=== PATIENT | male | born 1940 | race Caucasian/White ===

== ENCOUNTER 2022-01-31 14:47 | Outpatient (CLI) | payer MEDICARE, BC, SELFPAY | END 2022-01-31 14:48 | disposition home or self-care (01) | LOC: AMB 02-06 22:44 | PROVIDERS: PCP Surgery; Visit Provider Emergency Medicine Emergency Medical Services | DX: S39.92XA Unspecified injury of lower back, initial encounter (principal); W18.2XXA Fall in (into) shower or empty bathtub, initial encounter; Y93.E1 Activity, personal bathing and showering; Y92.003 Bedroom of unspecified non-institutional (private) residence as the place of occurrence of the external cause | CPT/HCPCS: A0425; A0433 ==

== ENCOUNTER 2022-01-31 15:34 | Emergency (ER) | payer MEDICARE, BC, SELFPAY ==
[2022-01-31 15:35] VITALS: BP 114/69; PULSE 52; O2SAT 97
[2022-01-31 15:38] VITALS: BP 114/69; PULSE 51; RESP 20; TEMP 36.3; O2SAT 98; BMI 32.5
--- NOTE | 2022-01-31 15:54 | CRLHL7_ITS ---
For Patients: As a result of the Century Cures Act, medical imaging exams and procedure reports are released immediately into your electronic medical record. You may view this report before your referring provider. If you have questions, please contact your health care provider. Indication: Thoracolumbar pain after fall Technique: Two views thoracolumbar spine Comparison: Nine Findings: Bones: Alignment is normal. No fractures or bone lesions. Joint spaces: Mild multilevel degenerative disc and facet changes.. Soft tissues: Unremarkable. Impression: No acute fracture or subluxation identified. Consider CT thoracolumbar spine for further evaluation if clinically indicated. Dictated by Ev Andrew MD @ 01/31/2022 4:56:47 PM (Electronically Signed)
--- NOTE | 2022-01-31 15:55 | ED_ITS ---
HPI - General Adult General Chief complaint: Back Injury/Pain Stated complaint: Fall Time Seen by Provider: 01/31/22 15:37 History of Present Illness HPI narrative: This 81-year-old male comes in by ambulance because of a fall that occurred just prior to arrival. He was in the bathtub and slipped and fell backwards. He has pain in his lower back on the right side. He did not hit his head or lose consciousness. He was able to get help and did get up and ambulate immediately after the fall. After sitting a while he has had increased pain in his right lower back. He received 50 micro g of fentanyl and a mg of Versed by ambulance personnel and route here and they needed to support his oximetry with supplemental oxygen soon after this. At the time of my visit he has no other complaints other than pain in his right lower back. He does not have any or pelvis pain. Related Data Home Medications Medication Instructions Recorded Confirmed acyclovir 400 mg tablet mg 01/31/22 apixaban 5 mg tablet (Eliquis) mg 01/31/22 atorvastatin 20 mg tablet mg 01/31/22 blood-glucose sensor (Dexcom G6 01/31/22 01/31/22 Sensor device) cholecalciferol (vitamin D3) 1,250 01/31/22 mcg (50,000 unit) capsule duloxetine 30 mg capsule,delayed mg PO 01/31/22 release gabapentin 100 mg capsule mg 01/31/22 gabapentin 300 mg capsule mg 01/31/22 glucagon 3 mg/actuation nasal mg INTRANASAL 01/31/22 spray (Baqsimi) latanoprost 0.005 % eye drops drp OPHTHALMIC (EYE) 01/31/22 omeprazole 20 mg capsule,delayed mg 01/31/22 release ondansetron HCl 4 mg tablet mg 01/31/22 Allergies Allergy/AdvReac Type Severity Reaction Status Date / Time clindamycin Allergy Unknown Verified 01/31/22 15:45 furosemide Allergy Unknown Verified 01/31/22 15:45 loratadine Allergy Unknown Verified 01/31/22 15:45 losartan Allergy Unknown Verified 01/31/22 15:45 mold Allergy Unknown Verified 01/31/22 15:45 simvastatin Allergy Unknown Verified 01/31/22 15:45 Review of Systems Status of ROS: Reports: 10 or more systems reviewed and unremarkable except as noted in History and below Narrative: Constitutional: No fevers, no weight gain or loss. Eyes: No discharge. No vision changes. HENT: No congestion, no sore throat, no ear pain. Cardiovascular: No chest pain, no palpitations. Respiratory: No shortness of breath, no wheezes, no cough. Gastrointestinal: No abdominal pain, no vomiting, no diarrhea. Genitourinary: No dysuria, no hematuria. Musculoskeletal: Lower back pain on the right side from a recent fall. Skin: No rashes, no pruritis. Neurological: No dizziness, weakness, sensory change, speech change. Endo/Heme/Allergies: No bruising or bleeding. No polydipsia. Pysch: no suicidality, no anxiety, no insomnia. All other systems reviewed and are negative. PFSH [facility] Social History Smoking Status: Never smoker Do you use any of these nicotine containing products: None Second hand tobacco smoke exposure: No How often do you have a drink containing alcohol: never How often do you have six or more drinks on one occasion: Never AUDIT-C Alcohol total score: 0 Non-prescribed substance use: denies use Exam Narrative: Exam Narrative: Constitutional: Well-developed, well-nourished, no acute distress. HEENT: Normocephalic, atraumatic. Neck: Normal range of motion. Nontender. Supple. Heart: Regular. No murmurs. Normal rate. Intact distal pulses. Lungs: Clear to auscultation. No chest discomfort. No wheezes, rhonchi, or rales. Abdomen: Normal bowel sounds. Nontender. No rebound tenderness. Genitalia: Deferred. Back: No midline tenderness. Normal range of motion. Extremities: Normal range of motion. No pain when log-rolling each leg or when stressing the pelvis. He reports pain in the right lower back. Skin: Intact. No rash. Warm. No erythema or pallor. Neurologic: No altered sensation. No weakness. Alert and oriented. Psychiatric: No suicidality. No anxiety or depression. No insomnia. Nursing notes and vitals signs are reviewed. Const: Vital Signs, click to edit/add: Vital Signs - 24 hr 01/31/22 15:35 01/31/22 15:38 01/31/22 16:00 Temperature 97.3 F L Pulse Rate [Left P ulse Oximeter] 52 L 51 L 53 L Respiratory Rate 20 Blood Pressure [Ri ght Upper Arm] 114/69 114/69 133/74 Pulse Oximetry 97 98 98 01/31/22 17:05 Temperature Pulse Rate [Left P ulse Oximeter] 58 L Respiratory Rate Blood Pressure [Ri ght Upper Arm] 134/105 H Pulse Oximetry 95 Course Vital Signs Vital signs: Initial Vital Signs Pulse Rate 52 L 01/31/22 15:35 Blood Pressure 114/69 01/31/22 15:35 Blood Pressure Mean 84 01/31/22 15:35 Blood Pressure Position Supine 01/31/22 15:35 Pulse Oximetry 97 01/31/22 15:35 Oxygen Delivery Method 01/31/22 15:35 Oxygen Flow Rate 2 01/31/22 15:35 Vital Signs Pulse Rate 52 L 01/31/22 15:35 Blood Pressure 114/69 01/31/22 15:35 Pulse Oximetry 97 01/31/22 15:35 Temperature 97.3 F L 01/31/22 15:38 Pulse Rate 58 L 01/31/22 17:05 Respiratory Rate 20 01/31/22 15:38 Blood Pressure 134/105 H 01/31/22 17:05 Pulse Oximetry 95 01/31/22 17:05 Medical Decision Making MDM Narrative Medical decision making narrative: This patient comes in for evaluation of injuries from a fall that occurred just prior to arrival. He reports pain in his right lower back. X-ray of the thoracolumbar spine shows no acute findings. The patient did receive an oral dose of [place]. He was able to get up and use a walker as is typical for him. He is okay to return home. He did receive a prescription for some tablets of [place] for additional pain relief as needed. Imaging Data thoracolumbar x-ray: Radiologist's impression: No acute fracture or subluxation identified. Discharge Plan Discharge Clinical Impression: Back injury Patient Disposition: Home, Self-Care Condition: Stable Instructions: Back Pain (ED) Additional Instructions: Fall with contusion to the back. Take medication as needed and prescribed. Activity as tolerated. Follow up with MD or return if worsening. Prescriptions: No Action latanoprost 0.005 % drops OPHTHALMIC (EYE) 0RF Label Comments: INSTILL 1 DROP IN BOTH EYES AT BEDTIME atorvastatin 20 mg tablet 0RF Label Comments: TAKE ONE TABLET BY MOUTH EVERY DAY ondansetron HCl 4 mg tablet 0RF Label Comments: TAKE 1 TABLET (4 MG) BY MOUTH EVERY 8 HOURS IF NEEDED FOR NAUSEA/VOMITING. acyclovir 400 mg tablet 0RF Label Comments: TAKE ONE TABLET BY MOUTH TWICE A DAY gabapentin 300 mg capsule 0RF Label Comments: TAKE 1 CAPSULE(300MG) BY MOUTH THREE TIMES DAILY omeprazole 20 mg capsule,delayed release(DR/EC) 0RF Label Comments: TAKE ONE CAPSULE BY MOUTH EVERY DAY BEFORE A MEAL gabapentin 100 mg capsule 0RF Label Comments: TAKE 3 CAPSULES BY MOUTH THREE TIMES DAILY duloxetine 30 mg capsule,delayed release(DR/EC) PO 0RF Label Comments: TAKE 1 CAPSULE (30 MG) BY MOUTH ONCE DAILY. cholecalciferol (vitamin D3) 1,250 mcg (50,000 unit) capsule 0RF Label Comments: TAKE ONE CAPSULE BY MOUTH EVERY OTHER WEEK (DME) DexVideolicious G6 Sensor Device MISCELLANEOUS 0RF Label Comments: DIRECTED. CHANGE EVERY 10 DAYS Eliquis 5 mg tablet 0RF Label Comments: TAKE ONE TABLET BY MOUTH TWICE A DAY Baqsimi 3 mg/actuation spray,non-aerosol INTRANASAL 0RF Label Comments: INHALE INTO AFFECTED NOSTRIL(S). WHEN UNABLE TO TREAT LOW BLOOD SUGAR (HYPOGLYCEMIA) WITH FOOD/ DRINK, GIVE ONE ACTUATION (3MG) INTO ONE NOSTRIL Follow Up/Referrals: Macario Pollard MD [Primary Care Provider] - [facility]
[2022-01-31 16:00] VITALS: BP 133/74; PULSE 53; O2SAT 98
[2022-01-31 17:05] VITALS: BP 134/105; PULSE 58; O2SAT 95
[2022-01-31 17:40] VITALS: BP 138/75; PULSE 60; O2SAT 97
[2022-01-31] MEDS: HYDROCODONE-ACETAMIN 5-325 MG 1 TAB PO (17:41)
== END 2022-01-31 18:05 | disposition home or self-care (01) ==
PROVIDERS: Emergency Provider Emergency Medicine Emergency Medical Services; PCP Surgery
DX: M54.50 Low back pain, unspecified (principal); W18.2XXA Fall in (into) shower or empty bathtub, initial encounter
CPT/HCPCS: 72080; 99283; 99284; A9270

== ENCOUNTER 2022-02-02 09:47 | Outpatient (CLI) | payer MEDICARE, BC, SELFPAY | END 2022-02-02 09:48 | disposition home or self-care (01) | LOC: AMB 02-07 11:56 | PROVIDERS: PCP Surgery; Visit Provider Family Medicine | DX: M54.9 Dorsalgia, unspecified (principal) | CPT/HCPCS: A0425; A0427 ==

== ENCOUNTER 2022-02-02 10:40 | Inpatient (IN) | payer MEDICARE, BC, SELFPAY ==
[2022-02-02] VITALS (7 sets, daily range): BP systolic 138–164; BP diastolic 63–100; PULSE 60–67; RESP 16–20; TEMP 35.7–36.8; O2SAT 91–98; BMI 33.6
--- NOTE | 2022-02-02 11:52 | PC.NURSE ---
ice water to room, ok'd by Dr Lenz
--- NOTE | 2022-02-02 11:56 | CRLHL7_ITS ---
For Patients: As a result of the Century Cures Act, medical imaging exams and procedure reports are released immediately into your electronic medical record. You may view this report before your referring provider. If you have questions, please contact your health care provider. INDICATION: Fall and pain TECHNIQUE: Single view chest with AP and oblique views of the right chest COMPARISON: Two-view chest October 11, 2020 FINDINGS: There is hyperinflation and chronic interstitial change with mildly increased interstitial markings likely representing mild pulmonary vascular congestion. There is minimal basilar atelectasis and parenchymal scar. The cardiac silhouette is mildly prominent. There is no evidence of displaced rib fracture. There is an old left-sided rib deformity, otherwise the bony thorax is intact. IMPRESSION: Hyperinflation and chronic interstitial change with likely mild superimposed pulmonary vascular congestion. No displaced rib fracture is appreciated. If pain and clinical symptoms persist, subtle, non-displaced injuries are not entirely excluded. Dictated by Narciso Taylor MD @ 02/02/2022 1:01:25 PM (Electronically Signed)
--- NOTE | 2022-02-02 12:03 | ED.BACK ---
HPI - Back Pain/Injury General Time Seen by Provider: 12:03 Date Seen: 02/02/22 Chief Complaint: Back Injury/Pain Stated Complaint: Back pain Time Seen by Provider: 02/02/22 10:46 Source: patient and family Mode of arrival: EMS Limitations: no limitations History of Present Illness HPI Narrative: 81-year-old gentleman comes to the emergency room for assessment of right-sided posterior back discomfort. He was seen in the emergency room 48 hours ago after a fall in his bathroom. He lives independently in the community with his . He does have some issues however, and uses a walker primarily to get a along. He has had increasing right-sided lower back discomfort since this occurred. He had imaging done of his entire thoracic lumbar area. According to the family. Was placed on Vicodin for the discomfort. And feels that this really is not working that well. If anything it is causing to have little mild clonus type jerking. He does feel constipated but his daughter who is here with him says that this is more of a chronic concern, possibly worsened by the hydrocodone. He has had no fevers or chills, he has had no shortness of breath, but when he takes a deep breath in he does have some discomfort. He denies any blood with urination but is chronically incontinent of urine. No radiation discomfort he describes his discomfort as 8/10. Related Data Home Medications Medication Instructions Recorded Confirmed acyclovir 400 mg tablet mg 01/31/22 apixaban 5 mg tablet (Eliquis) mg 01/31/22 atorvastatin 20 mg tablet mg 01/31/22 blood-glucose sensor (Dexcom G6 01/31/22 01/31/22 Sensor device) cholecalciferol (vitamin D3) 1,250 01/31/22 mcg (50,000 unit) capsule duloxetine 30 mg capsule,delayed mg PO 01/31/22 release gabapentin 100 mg capsule mg 01/31/22 gabapentin 300 mg capsule mg 01/31/22 glucagon 3 mg/actuation nasal mg INTRANASAL 01/31/22 spray (Baqsimi) latanoprost 0.005 % eye drops drp OPHTHALMIC (EYE) 01/31/22 omeprazole 20 mg capsule,delayed mg 01/31/22 release ondansetron HCl 4 mg tablet mg 01/31/22 Allergies Allergy/AdvReac Type Severity Reaction Status Date / Time clindamycin Allergy Unknown Verified 01/31/22 15:45 furosemide Allergy Unknown Verified 01/31/22 15:45 loratadine Allergy Unknown Verified 01/31/22 15:45 losartan Allergy Unknown Verified 01/31/22 15:45 mold Allergy Unknown Verified 01/31/22 15:45 simvastatin Allergy Unknown Verified 01/31/22 15:45 Review of Systems Status of ROS: Reports: 10 or more systems reviewed and unremarkable except as noted in History and below PFSH PFSH Social History Smoking Status: Never smoker Do you use any of these nicotine containing products: None Second hand tobacco smoke exposure: No How often do you have a drink containing alcohol: never How often do you have six or more drinks on one occasion: Never AUDIT-C Alcohol total score: 0 Non-prescribed substance use: denies use Exam Const: Vital Signs, click to edit/add: Vital Signs - 24 hr 02/02/22 10:47 Temperature 96.3 F L Pulse Rate [Right Radial] 61 Respiratory Rate 16 Blood Pressure [Ri ght Upper Arm] 156/80 H Pulse Oximetry 91 Documenting provider has reviewed patient's vital signs: yes Common normals: no apparent distress and oriented x3 General appearance: cooperative and comfortable Nutritional appearance: obese Orientation/consciousness: Yes awake, Yes oriented to person, Yes oriented to place and Yes oriented to time HENMT: Common normals: normocephalic, head/scalp atraumatic, hearing grossly normal bilaterally, external ears normal, TM's normal bilaterally, external nose normal, nasal mucous membranes and turbinates normal, moist oral mucous membranes, oropharynx normal, dentition normal and gingiva normal Head and scalp: normocephalic and atraumatic Nose: external nose normal and nasal mucous membranes and turbinates normal External ear: external ears normal Tympanic membrane: TM's normal bilaterally Eye: Common normals: PERRL, EOMs intact bilaterally, conjunctivae normal and fundi normal bilaterally Conjunctiva: conjunctiva(e) normal Pupil: PERRL Direct Ophthalmoscopy: fundi normal bilaterally Neck & C-Spine: Common normals: full ROM, no lymphadenopathy, supple, no meningeal signs, no JVD, thyroid normal and no carotid bruits Thyroid: thyroid normal Lymph: Lymphatic: no lymphadenopathy noted Chest: Common normals: inspection of chest normal Chest: localized rib tenderness with anteroposterior compression Nipple/areola: nipples/areola normal Resp: Common normals: normal respiratory effort, no retractions, no use of accessory muscles and clear to auscultation bilaterally Effort & inspection: able to speak in complete sentences and decreased respiratory effort Auscultation: clear to auscultation bilaterally Percussion: dullness (Dullness is noted bilaterally in the lower area) Cardio: Common normals: no JVD, regular rate, regular rhythm and S1 normal heart sound Palpation: normal PMI Rate: regular rate Rhythm: regular rhythm Heart sounds: S1 normal GI: Common normals: Normal to inspection, nondistended, normoactive bowel sounds present, soft to palpation, non-tender and no hepatosplenomegaly Inspection: normal to inspection and central obesity Auscultation: normoactive bowel sounds Palpation: soft and no hepatosplenomegaly Percussion: normal to percussion : Common normals: no CVA tenderness Bladder/kidney exam: no CVA tenderness Back & Pelvis: Common normals: no CVA tenderness, thoracic and lumbar spine normal to inspection, no thoracic nor lumbar tenderness, thoraco-lumbar ROM normal and straight leg raise negative bilaterally Extremity: Common normals: normal to inspection, full ROM and normal capillary refill General: edema Neuro: Common normals: oriented x3, CN's II-XII intact bilaterally, moves all extremities, no focal motor deficits, no sensory deficits noted, deep tendon reflexes 2+ bilaterally and gait normal Sensorium/orientation: awake, oriented to person, oriented to place and oriented to time Meningeal signs: no meningeal signs Other: Was a little bit a mild clonus right greater than left when he lifted his leg and moves around. Psych: Common normals: mental status grossly normal Course Vital Signs Vital signs: Initial Vital Signs Temperature 96.3 F L 02/02/22 10:47 Temperature Source Temporal Artery Scan 02/02/22 10:47 Pulse Rate 61 02/02/22 10:47 Pulse Rhythm 02/02/22 10:47 Respiratory Rate 16 02/02/22 10:47 Blood Pressure 156/80 H 02/02/22 10:47 Blood Pressure Mean 105 02/02/22 10:47 Blood Pressure Position Supine 02/02/22 10:47 Pulse Oximetry 91 02/02/22 10:47 Oxygen Delivery Method 02/02/22 10:47 Vital Signs Temperature 96.3 F L 02/02/22 10:47 Pulse Rate 61 02/02/22 10:47 Respiratory Rate 16 02/02/22 10:47 Blood Pressure 156/80 H 02/02/22 10:47 Pulse Oximetry 91 02/02/22 10:47 Temperature 96.3 F L 02/02/22 10:47 Pulse Rate 61 02/02/22 10:47 Respiratory Rate 16 02/02/22 10:47 Blood Pressure 156/80 H 02/02/22 10:47 Pulse Oximetry 91 02/02/22 10:47 MDM - Back Pain/Injury MDM Narrative Medical decision making narrative: Patient is seen and assessed he clearly has right-sided rib discomfort. I did review from the previous ER visit that he did not have rib x-rays. I explained to the family we will do these. Differential Diagnosis Differential diagnosis: Likely lumbar radiculopathy, sciatica, strain of lumbar region, renal colic, pyelonephritis and thoracic back pain Medical Records Attestation: I reviewed the patient's medical records. Lab Data Attestation: I reviewed the patient's lab results. Discharge Plan Discharge Prescriptions: No Action latanoprost 0.005 % drops OPHTHALMIC (EYE) 0RF Label Comments: INSTILL 1 DROP IN BOTH EYES AT BEDTIME atorvastatin 20 mg tablet 0RF Label Comments: TAKE ONE TABLET BY MOUTH EVERY DAY ondansetron HCl 4 mg tablet 0RF Label Comments: TAKE 1 TABLET (4 MG) BY MOUTH EVERY 8 HOURS IF NEEDED FOR NAUSEA/VOMITING. acyclovir 400 mg tablet 0RF Label Comments: TAKE ONE TABLET BY MOUTH TWICE A DAY gabapentin 300 mg capsule 0RF Label Comments: TAKE 1 CAPSULE(300MG) BY MOUTH THREE TIMES DAILY omeprazole 20 mg capsule,delayed release(DR/EC) 0RF Label Comments: TAKE ONE CAPSULE BY MOUTH EVERY DAY BEFORE A MEAL gabapentin 100 mg capsule 0RF Label Comments: TAKE 3 CAPSULES BY MOUTH THREE TIMES DAILY duloxetine 30 mg capsule,delayed release(DR/EC) PO 0RF Label Comments: TAKE 1 CAPSULE (30 MG) BY MOUTH ONCE DAILY. cholecalciferol (vitamin D3) 1,250 mcg (50,000 unit) capsule 0RF Label Comments: TAKE ONE CAPSULE BY MOUTH EVERY OTHER WEEK (DME) Char[employer]bu[employer] G6 Sensor Device MISCELLANEOUS 0RF Label Comments: DIRECTED. CHANGE EVERY 10 DAYS Eliquis 5 mg tablet 0RF Label Comments: TAKE ONE TABLET BY MOUTH TWICE A DAY Baqsimi 3 mg/actuation spray,non-aerosol INTRANASAL 0RF Label Comments: INHALE INTO AFFECTED NOSTRIL(S). WHEN UNABLE TO TREAT LOW BLOOD SUGAR (HYPOGLYCEMIA) WITH FOOD/ DRINK, GIVE ONE ACTUATION (3MG) INTO ONE NOSTRIL Follow Up/Referrals: Macario Pollard MD [Primary Care Provider] -
--- NOTE | 2022-02-02 12:34 | CRLHL7_ITS ---
For Patients: As a result of the Century Cures Act, medical imaging exams and procedure reports are released immediately into your electronic medical record. You may view this report before your referring provider. If you have questions, please contact your health care provider. Indication: Fall, right rib pain from Technique: Volumetric multidetector CT images of the chest were obtained without the administration of IV contrast. Comparison: CT chest without contrast August 10, 2015 Findings: The thoracic inlet and thyroid gland are unremarkable. The thoracic aorta is nonaneurysmal. There is demonstration of an increasing pre-vascular space mass lesion circumscribed with a somewhat macro lobulated contour measuring 4.5 x 1.8 centimeters, previously measuring 1.6 centimeters. There is mild to moderate central bronchial thickening with demonstration of somewhat collapsed appearing bronchi which may represent minimal bronchomalacia. There is biapical pleural thickening with dependent basilar atelectasis and parenchymal scar. There is no dense consolidation, effusion or pneumothorax. There is demonstration of a pulmonary mass within the anterior right upper lobe measuring 6.8 millimeters in greatest dimension similar to previous exam. There is demonstration of an additional pulmonary nodule in the peripheral right lung base measuring 6.1 millimeters. The partially visualized upper abdomen demonstrates minimal layering calculi within the gallbladder lumen. There is minimally displaced fracture of the posterior right 7th, 8th, and 9th ribs. There are old left-sided rib deformities appreciated. 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 These are stable from remote comparison. Impression: Minimally displaced fractures of the right posterior 7th, 8th and 9th ribs with minimal basilar atelectasis and parenchymal scar. No evidence of pneumothorax. Significantly increased size of a macro lobulated, circumscribed mass within the prevascular space which could represent a thymic mass lesion measuring 4.5 x 1.8 centimeters, previously this measured 1.6 centimeters on remote comparison. Recommend continued follow-up with contrast enhanced exam in 6 months to document stability. Please note that all CT scans at this facility use dose modulation, iterative reconstruction, and/or weight-based dosing when appropriate to reduce radiation dose to as low as reasonably achievable. Dictated by Narciso Taylor MD @ 02/02/2022 2:37:20 PM (Electronically Signed)
--- NOTE | 2022-02-02 12:47 | ED.BACK ---
HPI - Back Pain/Injury General Date Seen: 02/02/22 Chief Complaint: Back Injury/Pain Stated Complaint: Back pain Time Seen by Provider: 02/02/22 10:46 Source: patient and family Mode of arrival: EMS History of Present Illness HPI Narrative: 81-year-old gentleman presents by EMS for evaluation of back pain. Seen 48 hours ago after a fall that occurred in his house. He slid down the side of his bathroom onto the tile striking his right posterior side. He came in at that point had negative x-rays also as told to me by the daughter who is here. No history of any breathing difficulties with this although when he takes a deep breath in he notices it more his right. He has been taking hydrocodone for discomfort but notice this is really isn't working. He is taking 1 tablet every 6 hours. It is however constipated worse than his normal chronic constipation, he has a history also of incontinence of urine, in feels that he can not really passes urine but his daughter reminds him that he is always incontinent. He denies any other injury to his head neck or shoulders. Denies any problems with the legs. But has really been unable to walk in the family has been struggling at home as he is a large gentleman in getting him up and moving around. He is up to today been able to bear weight on his feet. But even today he has been unable to do this. They are considering whether not he will be able to go home at this point. Denies any chest pain, fevers chills or sweats, any dysuria frequency rashes, any headache, or any other concerns. MD elicited complaint: back pain and fall Related Data Home Medications Medication Instructions Recorded Confirmed acyclovir 400 mg tablet 400 mg PO Q12H 01/31/22 02/02/22 apixaban 5 mg tablet (Eliquis) 5 mg PO Q12H 01/31/22 02/02/22 atorvastatin 20 mg tablet 20 mg PO HS 01/31/22 02/02/22 blood-glucose sensor (Dexcom G6 01/31/22 02/02/22 Sensor device) cholecalciferol (vitamin D3) 1,250 50,000 unit PO .EVERY OTHER WEEK 01/31/22 02/02/22 mcg (50,000 unit) capsule duloxetine 30 mg capsule,delayed 30 mg PO DAILY 01/31/22 02/02/22 release gabapentin 300 mg capsule 300 mg PO Q8H 01/31/22 02/02/22 glucagon 3 mg/actuation nasal 3 mg INTRANASAL PRN 01/31/22 02/02/22 spray (Baqsimi) latanoprost 0.005 % eye drops 1 drp OPHTHALMIC (EYE) HS 01/31/22 02/02/22 brimonidine 0.2 % eye drops 1 drp OPHTHALMIC (EYE) Q8H 02/02/22 02/02/22 dorzolamide 22.3 mg-timolol 6.8 1 drp OPHTHALMIC (EYE) Q12H 02/02/22 02/02/22 mg/mL eye drops lenalidomide 5 mg capsule 5 mg PO DAILY 02/02/22 02/02/22 (Revlimid) Allergies Allergy/AdvReac Type Severity Reaction Status Date / Time clindamycin Allergy Unknown Verified 01/31/22 15:45 furosemide Allergy Unknown Verified 01/31/22 15:45 loratadine Allergy Unknown Verified 01/31/22 15:45 losartan Allergy Unknown Verified 01/31/22 15:45 mold Allergy Unknown Verified 01/31/22 15:45 simvastatin Allergy Unknown Verified 01/31/22 15:45 Review of Systems Status of ROS: Reports: 10 or more systems reviewed and unremarkable except as noted in History and below [facility] Social History Smoking Status: Never smoker Do you use any of these nicotine containing products: None Second hand tobacco smoke exposure: No How often do you have a drink containing alcohol: never How often do you have six or more drinks on one occasion: Never AUDIT-C Alcohol total score: 0 Non-prescribed substance use: denies use Exam Narrative: Exam Narrative: Patient is peaking normally, problem with slurring words, oriented x3. Head eyes ears nose and throat exam show equal pupils, no scleral icterus, extraocular muscles are normal, no facial droop, speech is normal, trachea normal and midline. Thyroid normal midline palpable not enlarged. Chest shows symmetrical rise bilaterally, normal auscultation with no wheezes, no increased work of breathing, no overt bruising or lesions seen,tenderness is noted on auscultation. Do not see any bruising, but there is tenderness on the right posterior lateral side of his chest. A little bit of dullness also as noted in the bases, and percussion dullness also. Heart sounds normal with no S3-S4 no murmurs clicks or gallops. Abdomen shows no obvious masses or hepatosplenomegaly, no organomegaly, bowel sounds are normal in all quadrants. No tenderness is noted also in all quadrants. There is noticeable umbilical hernia that is freely reducible, and he is distended, Upper and lower extremities show normal power, normal range of motion, pulses are normal, sensations normal, fine motor movements are normal, pelvis is stable to rocking. Cervical spine shows normal range of motion, and palpably not tender. Thoracic spine shows normal range of motion, and palpably not tender, lumbar spine shows no tenderness to palpation percussion and is otherwise normal range of motion. Skin shows no rashes, petechiae or eccymosis. Const: Vital Signs, click to edit/add: Vital Signs - 24 hr 02/02/22 10:47 02/02/22 14:35 Temperature 96.3 F L Pulse Rate [Right Radial] 61 64 Respiratory Rate 16 18 Blood Pressure [Ri ght Upper Arm] 156/80 H 138/100 H Pulse Oximetry 91 97 Documenting provider has reviewed patient's vital signs: yes Common normals: no apparent distress Course Vital Signs Vital signs: Initial Vital Signs Temperature 96.3 F L 02/02/22 10:47 Temperature Source Temporal Artery Scan 02/02/22 10:47 Pulse Rate 61 02/02/22 10:47 Pulse Rhythm 02/02/22 10:47 Respiratory Rate 16 02/02/22 10:47 Blood Pressure 156/80 H 02/02/22 10:47 Blood Pressure Mean 105 02/02/22 10:47 Blood Pressure Position Supine 02/02/22 10:47 Pulse Oximetry 91 02/02/22 10:47 Oxygen Delivery Method 02/02/22 10:47 Vital Signs Temperature 96.3 F L 02/02/22 10:47 Pulse Rate 61 02/02/22 10:47 Respiratory Rate 16 02/02/22 10:47 Blood Pressure 156/80 H 02/02/22 10:47 Pulse Oximetry 91 02/02/22 10:47 Temperature 96.3 F L 02/02/22 10:47 Pulse Rate 67 02/02/22 15:34 Respiratory Rate 18 02/02/22 15:34 Blood Pressure 150/86 H 02/02/22 15:34 Pulse Oximetry 97 02/02/22 15:34 MDM - Back Pain/Injury MDM Narrative Medical decision making narrative: Patient is seen and assessed, we will do an x-ray, of his right-sided ribs. I reviewed the rib x-ray did not see any obvious fracture, but did detail was limited. I will do a CT without contrast of the chest Differential Diagnosis Differential diagnosis: Likely strain of lumbar region and thoracic back pain Medical Records Attestation: I reviewed the patient's medical records. Lab Data Attestation: I reviewed the patient's lab results. Labs: Lab Results 02/02/22 Range/Units 13:54 SARS-CoV-2 (PCR) Negative SARS-CoV-2 (Negative)
[2022-02-02] MEDS: OxyCODONE/APAP 5-325 TABLET 2 TAB PO (13:29)
--- NOTE | 2022-02-02 14:48 | W.PC.EDHO ---
Primary Language: Preferred Language: Orientation Status: x[x] Alert & Oriented [] Slight Confusion [] Known Dx Dementia Transfers By: [] Assist of 1 [x] Assist of 2 [] Lift Active Medications Discontinued Medications Generic Name Dose Route Start Last Admin Trade Name Ti PRN Reason Stop Dose Admin Oxycodone/Acetaminophen 2 tab 02/02/22 13:17 02/02/22 13:29 Oxycodone/Apap 5-325 Tablet PO 02/02/22 13:18 1 tab ONCE ONE Administration Description of Symptoms ED Triage Present Problem patient fallen on Tuesday and c/o back pain was Description sent home with Vicodin . patient is not getting very good pain relief and has neuropathy in feet very hard to sit or stand. EMs given fent 25 mcg via IVP in LAC #20. has a insulin pump BS400 at home and received 10 units insuli. rechecked BS 350 by EMS with IV start. ED Triage Date of Onset of 01/31/22 Symptoms Pain Pain Description [Lower Back] Acute Pain Description [Lower Back] Throbbing Pain Intensity [Lower Back] 6 Pain Intensity 6 Pain Scale Used [Lower Back] Numeric (1 - 10) Pain Scale Used Numeric (1 - 10) Oxygen Administration Pulse Oximetry 91 Oxygen Delivery Method Room Air
[2022-02-02 15:40] LABS: SARS PCR* Negative SARS-CoV-2 (Negative)
--- NOTE | 2022-02-02 16:28 | PM.IMHP1 ---
Hospitalist- H&P: NASRA History of Present Illness Time Seen by Provider: 15:00 Date Seen: 02/02/22 Chief complaint: Back pain Narrative: Chava Theodore is a 81 year old man who lives at home with his . He was in his usual state of health up until roughly 2 days ago. Two days ago after he was done showering and trying to get out of the shower he sustained a fall. He fell backward. Immediately had pain on his right side of his chest posteriorly. Did not strike his head. No loss of consciousness. Pain was persistent. Presented to the emergency department for assessment. X-rays were performed and no obvious fractures were noted. Was given Percocet for pain management. Pain has been persistent despite attempted use of analgesics Thus he presents emergency department once again today. In the emergency department today a CT scan of the chest was obtained which demonstrates closed fracture of the right posterior 7th 8th and 9th ribs, mildly displaced. Pain is such that he is no longer able to care for himself at home as he used to. Does have help from his and nearby family. Has been using Percocet with only a modicum of relief. Since using the Percocet he has not been able to avoid. Ordinarily has urinary incontinence. History of prostate cancer status post robotic prostatectomy in 2010. Has had urinary incontinence since the robotic prostatectomy. Reviewed findings with patient and his family and they opted to come into the hospital for observation tonight. Plan is to try to achieve analgesia and have Physical therapy and Occupational therapy assess and recommend. Also will have outreach and education social worker assist with discharge disposition planning as well. Discussed returning home with increased services verses transitional care services in a skilled nursing if possible. At this juncture they are open to either option but they would prefer to be able to go home if possible. Review of Systems Status of ROS: Reports: 10 or more systems reviewed and unremarkable except as noted in History and below Narrative: Denies angina or anginal equivalent. No syncope or near syncope. No cough or dyspnea. Denies nausea or vomiting. Appetite slightly decreased in association with the use of the Percocet for the last couple of days. Again has had very little urine output since starting to use the Percocet. Denies bowel incontinence. Chronic unstable gait for which she uses a walker. He ascribes this to his peripheral neuropathy. Has had decrease physical abilities and activity for years under scoring underlying physical deconditioning and debility. Notes that he has constipation when he takes his Revlimid and has loose stools when he does not take his Revlimid. He takes his Revlimid for 21 days and then has 7 days off and then starts the 21 day administration of the Revlimid for his multiple myeloma once again. Has been on this maintenance therapy for years. Last hematology consultation he had was on 01/22/2022 with a decision being made to continue with current maintenance treatment with Revlimid. 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), bilateral Unstable gait Urinary incontinence Weakness Social History Highest level of school completed/degree received: Bachelor's degree Smoking Status: Never smoker Do you use any of these nicotine containing products: None Second hand tobacco smoke exposure: No How often do you have a drink containing alcohol: never How often do you have six or more drinks on one occasion: Never AUDIT-C Alcohol total score: 0 Non-prescribed substance use: denies use Caffeine: No Do you think of yourself as: straight/heterosexual Gender Identity: male service: Yes Meds Home Medications and Allergies Home Medications Medication Instructions Recorded Confirmed Type acyclovir 400 mg tablet 400 mg PO Q12H 01/31/22 02/02/22 History apixaban 5 mg tablet (Eliquis) 5 mg PO Q12H 01/31/22 02/02/22 History atorvastatin 20 mg tablet 20 mg PO HS 01/31/22 02/02/22 History blood-glucose sensor (Dexcom G6 01/31/22 02/02/22 History Sensor device) cholecalciferol (vitamin D3) 1,250 50,000 unit PO .EVERY OTHER WEEK 01/31/22 02/02/22 History mcg (50,000 unit) capsule gabapentin 300 mg capsule 600 mg PO BID 01/31/22 02/02/22 History glucagon 3 mg/actuation nasal 3 mg INTRANASAL PRN 01/31/22 02/02/22 History spray (Baqsimi) brimonidine 0.2 % eye drops 1 drp OPHTHALMIC (EYE) Q8H 02/02/22 02/02/22 History calcium carbonate 600 mg calcium 600 mg PO DAILY 02/02/22 02/02/22 History (1,500 mg) tablet (Calcium) cyanocobalamin (vitamin B-12) 1,000 mcg PO DAILY 02/02/22 02/02/22 History 1,000 mcg capsule dorzolamide 22.3 mg-timolol 6.8 1 drp OPHTHALMIC (EYE) Q12H 02/02/22 02/02/22 History mg/mL eye drops glucagon 1 mg/0.2 mL subcutaneous 1 mg SUBCUT DAILY PRN 02/02/22 02/02/22 History syringe (Page[employer] People PFS 1-Pack) insulin aspart U-100 100 unit/mL See Rx Instructions SUBCUT 02/02/22 02/02/22 History subcutaneous solution (Novolog USEASDIRECTD U-100 Insulin aspart) lenalidomide 5 mg capsule 5 mg PO DAILY 02/02/22 02/02/22 History (Revlimid) loperamide 2 mg capsule (Imodium 2 mg PO QID PRN 02/02/22 02/02/22 History A-D) multivitamin 1 tab PO DAILY@12 02/02/22 02/02/22 History omeprazole 20 mg capsule,delayed 20 mg PO DAILY@1600 02/02/22 02/02/22 History release ondansetron HCl 4 mg tablet 4 mg PO Q8H PRN 02/02/22 02/02/22 History oxycodone-acetaminophen 5 mg-325 1 tab PO Q6H PRN 02/02/22 02/02/22 History mg tablet (Percocet) sennosides 8.6 mg tablet (senna) 8.6 mg PO HS 02/02/22 02/02/22 History Allergies Allergy/AdvReac Type Severity Reaction Status Date / Time clindamycin Allergy Unknown Verified 01/31/22 15:45 furosemide Allergy Unknown Verified 01/31/22 15:45 loratadine Allergy Unknown Verified 01/31/22 15:45 losartan Allergy Unknown Verified 01/31/22 15:45 mold Allergy Unknown Verified 01/31/22 15:45 simvastatin Allergy Unknown Verified 01/31/22 15:45 Exam Narrative: Exam Narrative: When I see him he appears comfortable in the emergency department exam table with head of bed elevated about 45?. He is awake, alert, oriented to self, place, not so much to time, but is oriented to situation. He is pleasant. Slow to respond to his questions. Hard of hearing. Articulate. Cooperative. Seems to not be able to complete his thoughts at times. Mood and affect are congruent. Moves all 4 extremities. No obvious focal motor neurologic deficits aside from the chronic hearing and his generalized weakness particularly of lower extremities. Decreased sensation awareness of feet bilaterally. Lungs fairly clear to auscultation possibly some end inspiratory rales bilaterally. No wheezing or rhonchi. Heart tones with regular rhythm, normal S1-S2. Abdomen is obese with active bowel sounds, soft, nontender. Pitting edema bilateral lower extremities on dorsum of feet and pretibially. Few areas of ecchymosis from contusions on his skin. No open wounds. Const: Vital Signs, click to edit/add: Vital Signs - 24 hr 02/02/22 10:47 02/02/22 14:35 02/02/22 15:34 Temperature 96.3 F L Pulse Rate [Right Radial] 61 64 67 Respiratory Rate 16 18 18 Blood Pressure [Ri ght Upper Arm] 156/80 H 138/100 H 150/86 H Pulse Oximetry 91 97 97 Documenting provider has reviewed patient's vital signs: yes Hospitalist - H&P: Result Imaging CT scan - chest: Attestation: I have reviewed the pertinent imaging results. Radiologist's impression: Minimally displaced fractures of the right posterior 7th, 8th, and 9th ribs. Minimal basilar atelectasis and a parenchymal scar. No pneumothorax. There is a macro lobulated, circumscribed mass within the prevascular space measuring 4.5 cm x 1.8 cm previously measuring 1.6 cm. Possibly a thymic mass. Follow-up with the contrast enhanced exam in 6 months is recommended by the radiologist. Assessment and Plan Assessment and plan (1) Back injury: Status: Acute (2) Closed rib fracture: Problem comment: R posterior 7, 8, 9 rib fxs, mild displacement Status: Acute Assessment and Plan: Manage pain with scheduled acetaminophen, p.r.n. oxycodone, consider lidocaine patches. (3) Fall: Problem comment: 01/31/2022 from standing, in shower Status: Acute (4) Unstable gait: Problem comment: Uses walker Status: Acute (5) Peripheral neuropathy: Status: Acute (6) Weakness: Problem comment: Chronic Status: Acute Assessment and Plan: His weakness has seemingly only intensified since the fall that resulted in his rib fractures and starting Percocet for pain control. Admit to the hospital for observation for now. He is too weak to be able to return home. There is insufficient support in the home setting at this time. It would be too dangerous for him to be discharged from the hospital today to his home without further assessment and consideration of additional supportive efforts. Will have Physical therapy and Occupational therapy assess while he is in the hospital for observation. Consider home care options verses temporary transitional care services. (7) Urinary retention: Problem comment: From use of oxycodone for pain management Status: Acute Assessment and Plan: This is new since starting Percocet for management of his back pain. Usually has urinary incontinence. Monitor postvoid residuals and consider intermittent catheterizations for now. (8) Urinary incontinence: Problem comment: Since prostatectomy 2010 Status: Acute (9) Multiple myeloma: Problem comment: IgA kappa, diagnosed October 2013 On Revlimid (lenalidomide) maintenance, October 2015-present Followed by hematology, [facility], [place], [place] Status: Acute Assessment and Plan: Continue with the Revlimid. He has completed 7 of the 21 days of treatment. He still has 14 more days of treatment before has his 7 days off. (10) Diabetes mellitus type 1 with complications: Problem comment: Dx 1988 [employer] Insulin pump Status: Acute Assessment and Plan: Ordinarily utilizes his insulin pump at home is able to make all the calculations necessary to administer sliding scale according to his 15 g of carbohydrate to 1 unit of insulin. Currently his thought processes preclude him from being able to do this safely. In-hospital I will order a sliding scale insulin with each meal. Continue to monitor blood sugars a minimum of 4 times daily, a.c. and at bedtime. (11) Glaucoma: Problem comment: Multiple ophthalmic drops for treatment Status: Acute Assessment and Plan: Continue on his glaucoma ophthalmic drops. (12) Hyperlipidemia due to type 1 diabetes mellitus: Status: Acute Assessment and Plan: Continue on his supportive statin therapy. (13) Essential hypertension: Status: Acute (14) Pulmonary embolism: Problem comment: Following prostatectomy 2010 Status: Acute (15) Recurrent deep venous thrombosis: Status: Acute (16) Chronic anticoagulation: Status: Acute Assessment and Plan: For now will continue with the apixaban 5 mg twice daily. (17) Prostate cancer: Problem comment: Roger 3+3, pT3a,N0 adenocarcinoma s/p robotic prostatectomy 10/05/2010 Status: Acute (18) Cognitive impairment: Problem comment: 12/07/2021 Mini-Cog score 2, suggests dementia Status: Acute Assessment and Plan: Will ask Occupational therapy to assess with a [place] exam tomorrow if it is appropriate. (19) Sensorineural hearing loss (SNHL), bilateral: Status: Acute Assessment and Plan: Take measures to answer that he is able to engage in conversation meaningfully. (20) Chronic kidney disease, stage 3a: Status: Acute (21) Osteoarthritis: Status: Acute (22) Large thymus: Problem comment: 02/02/[address]: macrolobulated, circumscribed mass 4.5 cm x 1.8 cm - was 1.6 cm on 08/10/2015 CT chest without contrast. Contrast enhanced CT exam recommended in 6 months. Status: Acute Assessment and Plan: This will require consideration for reassessment in 6 months as recommended by the radiologist. Plan Reviewed with patient and his daughter Cassidy. Answered their questions. They are agreeable. Patient designates his , Jacqueline higgins, as his 1st contact for power of assistant prosecuting attorney for health should that be required. Jacqueline's cell phone number is [phone]. His daughter, Cassidy Franco, is the secondary power of assistant prosecuting attorney for health, her cell phone number is [phone]. Patient indicates unequivocally that he requests DNR DNI resuscitation status in the event of cardiopulmonary demise.
[2022-02-02] MEDS: ATORVASTATIN 10 MG TABLET 20 MG PO (17:02)
[2022-02-02] MEDS: ACETAMINOPHEN 325 MG TABLET 650 MG PO ×2 (17:02→21:18)
[2022-02-02 17:59] LABS: Lactate* 1.5 mmol/L (0.5-1.9)
[2022-02-02 18:03] LABS: Basophils Absolute Auto 0.03 K/uL (0.00-0.30); Basophils Percent Auto 0.4 % (0.0-3.0); Eosinophils Absolute Auto 0.19 K/uL (0.00-0.50); Eosinophils Percent Auto 2.6 % (0.0-7.0); Hematocrit 44.5 % (37.0-53.0); Hemoglobin* 14.3 gm/dL (13.5-17.5); Immature Granulocytes Abs Auto 0.07 K/uL (0.00-0.30); Lymphocytes Percent Auto 18.1 % (20-44); Mean Corpuscular HGB Conc 32 gm/dL (32-36); Mean Corpuscular Hemoglobin 31 pg (26-34); Mean Corpuscular Volume 97 fL (80-100); Monocytes Percent Auto 4.3 % (0.0-11.0); Neutrophils Percent Auto 73.6 % (42.0-72.0); Platelet Count* 189 K/uL (140-440); RDW Coefficient of Variation % 13.6 % (11.5-15.5); Red Blood Count 4.59 m/uL (4.30-5.90)
[2022-02-02 18:13] LABS: Slide Review Reflex No
[2022-02-02] MEDS: OXYCODONE 5 MG TABLET PO (18:29)
[2022-02-02 18:35] LABS: Albumin* 3.5 g/dL (3.3-5.0)
[2022-02-02 18:36] LABS: Chloride* 101 mmol/L (96-114); Potassium* 4.5 mmol/L (3.6-5.1); Sodium* 137 mmol/L (135-149)
[2022-02-02 18:38] LABS: Alkaline Phosphatase* 90 U/L (40-150); Aspartate Amino Transferase* 20 U/L (12-35); Bilirubin Total* 1.1 mg/dL (0.1-1.5); Carbon Dioxide* 30 mmol/L (20-32); Creatinine* 1.8 mg/dL (0.5-1.5); Est. Creatinine Clearance* 33.23; Estimated Glomerular Filt Rate 37 ml/min; Total Protein* 5.9 g/dL (6.0-8.3)
[2022-02-02 18:39] LABS: Alanine Aminotransferase* 21 U/L (4-50); Blood Urea Nitrogen* 37 mg/dL (7-30); Creatine Kinase* 94 U/L (54-186); Glucose* 190 mg/dL (60-115)
--- NOTE | 2022-02-02 18:55 | PC.NURSE ---
Pt. alert and oriented x3 but can be a little forgetful. Pleasant and cooperative. Family at bedside. Pt. reports pain but hesitant to take meds. PRN oxy given. Pt. verbalizes he's experiencing twitching as a result of Narcotics. MD updated no changes in orders. Pt. states unable to ambulate as a result of rib fracture, turn and repo. Pt. uses Dexcom for Blood Sugars. Home insulin pump used. Pt. Incontinent of Bowel and Bladder. Pt. on 2 L of oxygen.
[2022-02-02] MEDS: ACYCLOVIR 200 MG CAPSULE 400 MG PO (21:17)
[2022-02-02] MEDS: SENNOSIDES 1 TAB TABLET PO (21:18)
[2022-02-02] MEDS: GABAPENTIN 300 MG CAPSULE PO (21:19)
[2022-02-02] MEDS: BRIMONIDINE TARTRATE 0.2% OPHTH 1 DROP EYE-BOTH (21:19)
[2022-02-02] MEDS: APIXABAN 5 MG TABLET PO (21:19)
[2022-02-02] MEDS: DORZOLAMIDE/TIMOLOL 2-0.5% OPHTH 1 DROP EYE-BOTH (21:21)
[2022-02-03 03:00] VITALS: BP 127/86; PULSE 56; RESP 18; TEMP 36.6; O2SAT 97
[2022-02-03 07:00] VITALS: BP 152/71; PULSE 57; RESP 18; TEMP 37.7; O2SAT 100
[2022-02-03] MEDS: OXYCODONE 5 MG TABLET PO (07:54)
[2022-02-03] MEDS: ACETAMINOPHEN 325 MG TABLET 650 MG PO ×4 (09:11→20:43)
[2022-02-03] MEDS: APIXABAN 5 MG TABLET PO ×2 (09:12→20:44)
[2022-02-03] MEDS: ACYCLOVIR 200 MG CAPSULE 400 MG PO ×2 (09:12→20:45)
[2022-02-03] MEDS: DORZOLAMIDE/TIMOLOL 2-0.5% OPHTH 1 DROP EYE-BOTH ×2 (09:12→20:45)
[2022-02-03] MEDS: CALCIUM CARBONATE 500 MG TABLET PO (09:13)
[2022-02-03] MEDS: GABAPENTIN 300 MG CAPSULE PO ×3 (09:13→20:44)
[2022-02-03] MEDS: CYANOCOBALAMIN (VITAMIN B-12) 500 MCG TABLET 1000 MCG PO (09:13)
[2022-02-03] MEDS: BRIMONIDINE TARTRATE 0.2% OPHTH 1 DROP EYE-BOTH ×3 (09:13→20:45)
[2022-02-03] MEDS: SENNOSIDES 1 TAB TABLET PO ×2 (09:27→20:45)
--- NOTE | 2022-02-03 10:14 | PM.IMPN1 ---
Progress Note: A&P Assessment and plan (1) Back injury: Status: Acute Assessment and Plan: Continue with pain control and physical occupational therapy. (2) Closed rib fracture: Problem details: R posterior 7, 8, 9 rib fxs, mild displacement Status: Acute Assessment and Plan: Again pain control physical occupational therapy. Social were consulting will likely need assisted placement in the next 1-2 days. (3) Fall: Problem details: 01/31/2022 from standing, in shower Status: Acute Assessment and Plan: As above. (4) Unstable gait: Problem details: Uses walker Status: Acute Assessment and Plan: As above. (5) Peripheral neuropathy: Status: Acute Assessment and Plan: Chronic. (6) Multiple myeloma: Problem details: IgA kappa, diagnosed October 2013 On Revlimid (lenalidomide) maintenance, October 2015-present Followed by hematology, [place], [place] Status: Acute Assessment and Plan: Patient will continue outpatient treatment. 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 (8) Essential hypertension: Status: Acute Assessment and Plan: Continue current management. (9) Chronic anticoagulation: Status: Acute Assessment and Plan: Patient is history of DVT and PE. Will continue anticoagulation. (10) Cognitive impairment: Problem details: 12/07/2021 Mini-Cog score 2, suggests dementia Status: Acute Assessment and Plan: Likely will need assisted transfer. 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 Contrast enhanced CT exam recommended in 6 months. Status: Acute Assessment and Plan: Plan to follow-up in 6 months. Subjective Time Seen by Provider: 10:15 Date Seen: 02/03/22 Interval history: Patient is 81-year-old gentleman admitted yesterday with a fall. He suffered right posterior rib fractures 7 8 and 9. He has been very reluctant to move and is very difficult to care for at home. He has some underlying dementia as well as multiple myeloma. CT scan of the chest for evaluation is rib pain did show questionable thymic mass. Patient this morning is still very reluctant to move but his pain is under better control. He is eating and drinking without any difficulty. Exam Narrative: Exam Narrative: EXAM GENERAL: Patient appears comfortable and well. EYES: No scleral icterus. LYMPH: No supraclavicular or cervical lymphadenopathy. SKIN: Visible skin seen during exam normal or with benign process only. EXT: No dependent lower extremity pedal edema. HEART: Regular rate and rhythm with no murmurs, rubs, or gallops. LUNGS: Clear to auscultation bilaterally with no crackles or wheezes. ABD: Soft, non tender, non distended. PSYCH: Good eye contact, speech is not pressured. Const: Vital Signs, click to edit/add: Vital Signs - 24 hr 02/02/22 10:47 02/02/22 14:35 02/02/22 15:34 Temperature 96.3 F L Pulse Rate [Right Pulse Oximeter] Pulse Rate [Right Radial] 61 64 67 Respiratory Rate 16 18 18 Blood Pressure [Ri ght Arm] Blood Pressure [Ri ght Upper Arm] 156/80 H 138/100 H 150/86 H Pulse Oximetry 91 97 97 02/02/22 15:53 02/02/22 16:47 02/02/22 19:00 Temperature 97.8 F 97.9 F Pulse Rate [Right Pulse Oximeter] 64 60 Pulse Rate [Right Radial] Respiratory Rate 20 20 20 Blood Pressure [Ri ght Arm] Blood Pressure [Ri ght Upper Arm] Pulse Oximetry 98 98 96 02/02/22 23:00 02/03/22 03:00 Temperature 98.3 F 97.8 F Pulse Rate [Right Pulse Oximeter] 60 56 L Pulse Rate [Right Radial] Respiratory Rate 18 18 Blood Pressure [Ri ght Arm] 164/63 H 127/86 Blood Pressure [Ri ght Upper Arm] Pulse Oximetry 98 97 Labs Labs: Laboratory Results - last 24 hr 02/02/22 02/02/22 02/02/22 13:54 17:50 17:50 WBC 7.20 RBC 4.59 Hgb 14.3 Hct 44.5 MCV 97 MCH 31 MCHC 32 RDW Coeff of Teresa 13.6 Plt Count 189 Neut % (Auto) 73.6 H Lymph % (Auto) 18.1 L [place] % (Auto) 4.3 Eos % (Auto) 2.6 Baso % (Auto) 0.4 Neut # (Auto) 5.30 Lymph # (Auto) 1.30 [place] # (Auto) 0.30 Eos # (Auto) 0.19 Baso # (Auto) 0.03 Abs Immat Gran (auto) 0.07 Sodium 137 Potassium 4.5 Chloride 101 Carbon Dioxide 30 BUN 37 H Creatinine 1.8 H Estimated Creat Clear 33.23 Estimated GFR 37 Glucose 190 H Lactate Calcium 9.0 Total Bilirubin 1.1 AST 20 ALT 21 Alkaline Phosphatase 90 Total Creatine Kinase 94 Total Protein 5.9 L Albumin 3.5 TSH SARS-CoV-2 (PCR) Negative SARS-CoV-2 02/02/22 02/02/22 17:50 17:50 WBC RBC Hgb Hct MCV MCH MCHC RDW Coeff of Teresa Plt Count Neut % (Auto) Lymph % (Auto) Len[place] % (Auto) Eos % (Auto) Baso % (Auto) Neut # (Auto) Lymph # (Auto) [place] # (Auto) Eos # (Auto) Baso # (Auto) Abs Immat Gran (auto) Sodium Potassium Chloride Carbon Dioxide BUN Creatinine Estimated Creat Clear Estimated GFR Glucose Lactate 1.5 Calcium Total Bilirubin AST ALT Alkaline Phosphatase Total Creatine Kinase Total Protein Albumin TSH 0.930 SARS-CoV-2 (PCR)
[2022-02-03 11:00] VITALS: BP 142/62; PULSE 50; RESP 20; TEMP 36.6; O2SAT 97
--- NOTE | 2022-02-03 12:42 | PC.NURSE ---
preliminary nurse to nurse with Chris given
[2022-02-03] MEDS: MULTIVITAMIN/MINERALS 1 TABLET 1 TAB PO (12:43)
[2022-02-03] MEDS: TRAMADOL HCL 50 MG TABLET PO ×2 (12:43→20:44)
[2022-02-03] MEDS: SODIUM CHLORIDE 0.9 % (FLUSH) 10 ML SYRINGE 5 ML IVF ×2 (14:38→20:46)
[2022-02-03 15:00] VITALS: BP 139/54; PULSE 47; RESP 20; TEMP 36.8; O2SAT 99
--- NOTE | 2022-02-03 15:45 | PC.NURSE ---
Addendum entered by Madonna Martin RN 02/03/22 16:09: during brief change, found creases of groin and abdomen to be redenned. small open area. area washed and dried and barrier cream applied. Original Note: shift [id number] Start of shift, pt resisting change of position from bed to chair d/t pain. Pt incontinent of urine and nurse unable to get urine sample. Abdomen large, hard and tender, pt reported no BM in at least 2 weeks. 4+ pitting edema bilat feet, and blood glucose pump reads 268. Charge nurse notified. Pt initially refused medication to promote BM d/t fear of needing to move and causing pain and later agreed after talking with spouse. Educated on importance of moving, establishing a bowel pattern, and deep breathing and the consequences of not complying. IS education given and return demonstration done. Full bed bath and oral cares done end of shift, tolerated well.
[2022-02-03] MEDS: LIDOCAINE 5% PATCH 1 PATCH TRANSDERMA (16:49)
[2022-02-03] MEDS: OMEPRAZOLE 20 MG CAPSULE DR PO (16:49)
[2022-02-03] MEDS: ATORVASTATIN 10 MG TABLET 20 MG PO (17:10)
[2022-02-03 19:00] VITALS: BP 116/55; PULSE 50; RESP 20; TEMP 36.6; O2SAT 96
--- NOTE | 2022-02-03 22:19 | PC.NURSE ---
Shift Note: Pt friendly and cooperative, but very weak. VS WNL and LS COA. Afebrile. Pt up to dangle this afternoon for 1-2 minutes. He needed assist x2 to sit up and struggled to maintain upright position independently. Encouraged deep breathing. T/R Q2H, bottom bruised from previous fall and slightly reddened/blanchable on coccyx and surrounding tissue. Currently resting on right side. Incontinent. BG= 259 & 242. Per daughter Cassidy, pt received 6 units sliding scale novolog with supper and HS sliding scale was declined. Pt's own insulin pump in place. Jania and at bedside this afternoon with questions regarding POC/discharge planning and diabetic management during hospital stay. Cage Unloader discussed issues with family and left message for Maru, patient advocate to follow up with family tomorrow.
[2022-02-03 23:00] VITALS: BP 128/55; PULSE 84; RESP 20; TEMP 36.6
[2022-02-04] VITALS (7 sets, daily range): BP systolic 108–174; BP diastolic 58–78; PULSE 48–81; RESP 18; TEMP 36.6–36.8; O2SAT 92–94
[2022-02-04] MEDS: TRAMADOL HCL 50 MG TABLET PO ×2 (04:48→11:39)
--- NOTE | 2022-02-04 05:39 | PC.NURSE ---
Pt pleasant and cooperative. Very fatigued and does have pain with movement. He is inc of urine overnight. No stool. Abdomin is firm with + BT. Mod assist with movement in bed. VSS he has 1L O2 on to maintain sats above 90%.
--- NOTE | 2022-02-04 08:52 | PM.IMPN1 ---
Progress Note: A&P Assessment and plan (1) Back injury: Status: Acute Assessment and Plan: Continue PT OT pain control. Patient will require intermediate placement for rehab. Arrangements are being made for the next several days. Patient is able to hold his Revlimid during his intermediate stay. (2) Closed rib fracture: Problem details: R posterior 7, 8, 9 rib fxs, mild displacement Status: Acute Assessment and Plan: As above. (3) Fall: Problem details: 01/31/2022 from standing, in shower Status: Acute Assessment and Plan: Continue PT OT with intermediate placement. (4) Unstable gait: Problem details: Uses walker Status: Acute (5) Peripheral neuropathy: Status: Acute (6) Multiple myeloma: Problem details: IgA kappa, diagnosed October 2013 On Revlimid (lenalidomide) maintenance, October 2015-present Followed by hematology, [place], [place] Status: Acute Assessment and Plan: Again will plan to hold Revlimid at the time of discharge to a intermediate placement. 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 Contrast enhanced CT exam recommended in 6 months. Status: Acute Subjective Time Seen by Provider: 08:54 Date Seen: 02/04/22 Interval history: Patient is 81-year-old gentleman admitted yesterday with a fall. He suffered right posterior rib fractures 7 8 and 9. He has been very reluctant to move and is very difficult to care for at home. He has some underlying dementia as well as multiple myeloma. CT scan of the chest for evaluation is rib pain did show questionable thymic mass. Patient this morning is still very reluctant to move but his pain is under better control. He is eating and drinking without any difficulty. Patient still requires ongoing care. He is we to need a rehab facility. Exam Narrative: Exam Narrative: EXAM GENERAL: Patient appears comfortable and well. EYES: No scleral icterus. LYMPH: No supraclavicular or cervical lymphadenopathy. SKIN: Visible skin seen during exam normal or with benign process only. EXT: No dependent lower extremity pedal edema. HEART: Regular rate and rhythm with no murmurs, rubs, or gallops. LUNGS: Clear to auscultation bilaterally with no crackles or wheezes. ABD: Soft, non tender, non distended. PSYCH: Good eye contact, speech is not pressured. Const: Vital Signs, click to edit/add: Vital Signs - 24 hr 02/03/22 11:00 02/03/22 15:00 02/03/22 19:00 Temperature 97.9 F 98.2 F 97.9 F Pulse Rate [Right Pulse Oximeter] 50 L 47 L 50 L Respiratory Rate 20 20 20 Blood Pressure [Ri ght Arm] 142/62 H 139/54 L 116/55 L Pulse Oximetry 97 99 96 02/03/22 23:00 02/04/22 00:42 02/04/22 03:00 Temperature 97.9 F 97.9 F Pulse Rate [Right Pulse Oximeter] 84 81 Respiratory Rate 20 18 Blood Pressure [Ri ght Arm] 128/55 L 147/58 H Pulse Oximetry 93
[2022-02-04] MEDS: SENNOSIDES 1 TAB TABLET PO ×2 (09:50→21:19)
[2022-02-04] MEDS: GABAPENTIN 300 MG CAPSULE PO ×3 (09:51→21:19)
[2022-02-04] MEDS: CYANOCOBALAMIN (VITAMIN B-12) 500 MCG TABLET 1000 MCG PO (09:51)
[2022-02-04] MEDS: CALCIUM CARBONATE 500 MG TABLET PO (09:51)
[2022-02-04] MEDS: APIXABAN 5 MG TABLET PO ×2 (09:51→21:19)
[2022-02-04] MEDS: ACYCLOVIR 200 MG CAPSULE 400 MG PO ×2 (09:52→21:19)
[2022-02-04] MEDS: SODIUM CHLORIDE 0.9 % (FLUSH) 10 ML SYRINGE 5 ML IVF ×2 (09:52→21:22)
[2022-02-04] MEDS: DORZOLAMIDE/TIMOLOL 2-0.5% OPHTH 1 DROP EYE-BOTH ×2 (09:53→21:20)
[2022-02-04] MEDS: ACETAMINOPHEN 325 MG TABLET 650 MG PO ×4 (09:53→21:20)
[2022-02-04] MEDS: BRIMONIDINE TARTRATE 0.2% OPHTH 1 DROP EYE-BOTH ×3 (09:53→21:20)
[2022-02-04] MEDS: polyethylene glycoL 3350 17 GM PACK PO (11:39)
[2022-02-04] MEDS: MULTIVITAMIN/MINERALS 1 TABLET 1 TAB PO (11:39)
[2022-02-04] MEDS: INSULIN ASPART U SUBCUT (12:00)
--- NOTE | 2022-02-04 14:14 | PC.SOCIAL ---
Social work: Met with pt and regarding discharge plan on 02/03/22. Both requested placement in a short term rehab facility at either [facility] or [facility] in [place]. Faxed information for evaluation for admit. Both facilities are able to accept pt when ready for discharge. Met with family who is requesting placement in [facility] as first choice. Called [facility] and spoke with Lauryn who states they can accept tomorrow 02/05/22 and would like pt to arrive between 10am-1:00pm. blood bank worker to follow up as needed.
[2022-02-04] MEDS: OMEPRAZOLE 20 MG CAPSULE DR PO (16:10)
[2022-02-04] MEDS: LIDOCAINE 5% PATCH 1 PATCH TRANSDERMA (16:10)
[2022-02-04] MEDS: ATORVASTATIN 10 MG TABLET 20 MG PO (17:38)
--- NOTE | 2022-02-04 18:23 | PC.NURSE ---
PATIENT'S VSS AND AFEBRILE. PATIENT RECEIVING SCHEDULED TYLENOL AND PRN ULTRAM FOR BACK PAIN. LIDOCAINE PATCH APPLIED THIS AFTERNOON TO RIGHT FLANK AREA. PATIENT EATING REGULAR DIET WITH NO C/O N/V. UP WITH A2, WALKER AND GAIT BELT TO RECLINER. PATIENT WEAK AND INCREASED PAIN WITH MOVEMENT. PATIENT ABLE TO WALK 4-5 FEET BEFORE NEEDING TO SIT DOWN. INSULIN PUMP TO LEFT LOWER ABDOMEN. SEE FLOW SHEET FOR ADMINISTRATION. PATIENT NOTED TO HAVE 2 SMALL BLOOD BLISTERS TO TOP OF RIGHT FOOT AND 1 SMALL BLISTER TO TOP OF LEFT FOOT. DR. RIBEIRO VISUALIZED. PATIENT REPORTS HE HAS HAD ISSUES WITH WOUNDS TO HIS FEET AND BILATERAL LOWER EXTREMITIES CHRONICALLY. PATIENT REPORTS HE HAS LYMPHEDEMA WRAPS AT HOME THAT HIS DID BRING IN. PRIOR TO 'S ARRIVAL, MEPILEX BORDERS APPLIED TO TOP OF BOTH FEET AND BILATERAL LOWER EXTREMITIES EDIN WRAPPED PER MD ORDER.
[2022-02-05 03:00] VITALS: BP 140/93; PULSE 46; RESP 18; TEMP 36.7; O2SAT 94
[2022-02-05] MEDS: TRAMADOL HCL 50 MG TABLET PO ×2 (04:09→09:54)
[2022-02-05] MEDS: LIDOCAINE 5% PATCH 1 PATCH TRANSDERMA (04:48)
--- NOTE | 2022-02-05 06:02 | PC.NURSE ---
[id number] First half of shift pt comfortable in recliner, as night progressed pt experiencing increased pain, prn tramadol administered with minimal relief. pt refused oxycodone. attempted to have bm in bsc x1, unsuccesful.
[2022-02-05] MEDS: polyethylene glycoL 3350 17 GM PACK PO (07:49)
[2022-02-05 08:00] VITALS: PULSE 61; RESP 18
[2022-02-05 08:15] VITALS: BP 157/66; PULSE 61; RESP 18; TEMP 36.6; O2SAT 94
--- NOTE | 2022-02-05 08:56 | PM.DS1 ---
DS: Providers Provider Time Seen by Provider: 08:56 Date Seen: 02/05/22 Date of admission: 02/04/22 13:45 Primary care physician: Macario Pollard MD Admitting Clinician: Randall Jj MD Consults: 02/02/22 15:46 Consult to Physical Therapy [CONS] Routine Comment: uses walker at home Reason(s) for PT Consult:: Evaluate and Treat Any Restrictions?:: See Comment Comment: R rib fxs s/p fall, unstable gait, weakness Consult to Registered Massage Therapist [CONS] Routine Comment: Reason for Consult:: Discharge Planning Needs 02/02/22 15:47 Consult to Occupational Therapy [CONS] Routine Comment: Reason(s) for OT Consult:: Evaluate and Treat Any Restrictions?:: See Comment Comment: R rib fxs s/p fall, unstable gait, weakness 02/02/22 16:33 Consult to Physical Therapy [CONS] Routine Comment: Reason(s) for PT Consult:: Evaluate and Treat Any Restrictions?:: No Restrictions Attending Physician on discharge: Randall Jj MD DS: Diagnosis Discharge Diagnosis (1) Back injury: Status: Acute (2) Closed rib fracture: Status: Acute Problem details: R posterior 7, 8, 9 rib fxs, mild displacement (3) Fall: Status: Acute Problem details: 01/31/2022 from standing, in shower (4) Unstable gait: Status: Acute Problem details: Uses walker (5) Peripheral neuropathy: Status: Acute (6) Multiple myeloma: Status: Acute Problem details: IgA kappa, diagnosed October 2013 On Revlimid (lenalidomide) maintenance, October 2015-present Followed by hematology, [place], [place] (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 Contrast enhanced CT exam recommended in 6 months. DS: Summary Hospital Course Hospital Course: Patient is a 81-year-old gentleman who unfortunately fell breaking number ribs. He is also suffering from acute on chronic back pain. Patient was admitted and underwent physical and occupational therapy will require penitentiary placement at least for rehab. He will have continued PT and OT at the accepting facility. Patient's Revlimid is a discontinued in the short term and patient insulin pump is discontinued the patient placed on list pro +Lantus insulin. Will continue pain control and follow-up with his primary physician as needed. Status at Discharge Functional status at discharge: uses cane/walker Overall status at discharge: patient is not back to baseline Time Spent with Patient Time attestation: Total time spent providing and/or coordinating discharge services: Time spent: Greater than 30 minutes Exam Narrative: Exam Narrative: EXAM GENERAL: Patient appears comfortable and well. EYES: No scleral icterus. LYMPH: No supraclavicular or cervical lymphadenopathy. SKIN: Visible skin seen during exam normal or with benign process only. EXT: No dependent lower extremity pedal edema. HEART: Regular rate and rhythm with no murmurs, rubs, or gallops. LUNGS: Clear to auscultation bilaterally with no crackles or wheezes. ABD: Soft, non tender, non distended. PSYCH: Good eye contact, speech is not pressured. Const: Vital Signs, click to edit/add: Vital Signs - 24 hr 02/04/22 11:00 02/04/22 15:00 02/04/22 19:30 Temperature 98.3 F 98 F 97.8 F Pulse Rate [Right Pulse Oximeter] 51 L 57 L 58 L Respiratory Rate 18 18 18 Blood Pressure [Ri ght Arm] 171/68 H 132/78 108/61 Pulse Oximetry 92 94 92 02/04/22 23:31 02/05/22 03:00 Temperature 97.8 F 98.1 F Pulse Rate [Right Pulse Oximeter] 58 L 46 L Respiratory Rate 18 18 Blood Pressure [Ri ght Arm] 108/61 140/93 H Pulse Oximetry 92 94 Discharge Plan Discharge Disposition: [facility] Date of Admission: 02/04/22 13:45 Attending Provider on Discharge: Marquis Millan Primary Care Provider: Macario Pollard Discharge Medications: New insulin glargine [Lantus Solostar U-100 Insulin] 100 unit/mL (3 mL) insulin pen 10 unit subcut BID Qty: 15 3RF insulin lispro 100 unit/mL insulin pen 1 sliding scale dose subcut USEASDIRECTD Qty: 15 2RF Continued atorvastatin 20 mg tablet 20 mg PO HS 0RF Label Comments: TAKE ONE TABLET BY MOUTH EVERY DAY acyclovir 400 mg tablet 400 mg PO Q12H 0RF Label Comments: TAKE ONE TABLET BY MOUTH TWICE A DAY gabapentin 300 mg capsule 600 mg PO BID 0RF Label Comments: TAKE 1 CAPSULE(300MG) BY MOUTH THREE TIMES DAILY cholecalciferol (vitamin D3) 1,250 mcg (50,000 unit) capsule 50,000 unit PO .EVERY OTHER WEEK 0RF Label Comments: TAKE ONE CAPSULE BY MOUTH EVERY OTHER WEEK Eliquis 5 mg tablet 5 mg PO Q12H 0RF Label Comments: TAKE ONE TABLET BY MOUTH TWICE A DAY Baqsimi 3 mg/actuation spray,non-aerosol 3 mg INTRANASAL PRN 0RF Label Comments: INHALE INTO AFFECTED NOSTRIL(S). WHEN UNABLE TO TREAT LOW BLOOD SUGAR (HYPOGLYCEMIA) WITH FOOD/ DRINK, GIVE ONE ACTUATION (3MG) INTO ONE NOSTRIL brimonidine 0.2 % drops 1 drp OPHTHALMIC (EYE) Q8H 0RF Label Comments: INSTILL 1 DROP IN BOTH EYES THREE TIMES DAILY Rx Instructions: USE IN BOTH EYES dorzolamide-timolol 22.3-6.8 mg/mL drops 1 drp OPHTHALMIC (EYE) Q12H 0RF Label Comments: PLACE ONE DROP IN BOTH EYES TWICE A DAY Rx Instructions: PLACE ONE DROP IN BOTH EYES ondansetron HCl 4 mg tablet 4 mg PO Q8H PRN0RF Label Comments: TAKE 1 TABLET (4 MG) BY MOUTH EVERY 8 HOURS IF NEEDED FOR NAUSEA/VOMITING. omeprazole 20 mg capsule,delayed release(DR/EC) 20 mg PO DAILY@1600 0RF Label Comments: TAKE ONE CAPSULE BY MOUTH EVERY DAY BEFORE A MEAL Gvoke PFS 1-Pack Syringe 1 mg/0.2 mL syringe 1 mg SUBCUT DAILY PRN0RF calcium carbonate [Calcium 600] 600 mg calcium (1,500 mg) tablet 600 mg PO DAILY 0RF cyanocobalamin (vitamin B-12) 1,000 mcg capsule 1,000 mcg PO DAILY 0RF loperamide [Imodium A-D] 2 mg capsule 2 mg PO QID PRN0RF sennosides [senna] 8.6 mg tablet 8.6 mg PO HS 0RF multivitamin Tablet 1 tab PO DAILY@12 0RF oxycodone-acetaminophen [Percocet] 5-325 mg tablet 1 tab PO Q6H PRN0RF Discontinued lenalidomide [Revlimid] 5 mg capsule 5 mg PO DAILY 0RF Rx Instructions: DAYS 1-21 OF 28 DAY CYCLE insulin aspart U-100 [Novolog U-100 Insulin aspart] 100 unit/mL solution See Rx Instructions subcut USEASDIRECTD 0RF Rx Instructions: per insulin pump settings on 02/02/22: 0480-1136 0.9 units/hr 0067-1662 1.3 units/hr 4231-3184 1.75 units/hr 2062-2318 1.6 units/hr 6811-5194 1.4 units/hr No Action (DME) Dexcom G6 Sensor Device MISCELLANEOUS 0RF Hold Instructions: Doctor's Order Label Comments: DIRECTED. CHANGE EVERY 10 DAYS Discharge Orders: Discharge Order (Routine); Ordered 02/05/22 Ordered By: Marquis Millan Activity Level: No Restrictions Discharge Diet: Regular Follow Up Appointments: Macario Pollard MD [Primary Care Provider] -
[2022-02-05] MEDS: CALCIUM CARBONATE 500 MG TABLET PO (09:14)
[2022-02-05] MEDS: ACYCLOVIR 200 MG CAPSULE 400 MG PO (09:14)
[2022-02-05] MEDS: SENNOSIDES 1 TAB TABLET PO (09:14)
[2022-02-05] MEDS: GABAPENTIN 300 MG CAPSULE PO (09:14)
[2022-02-05] MEDS: DORZOLAMIDE/TIMOLOL 2-0.5% OPHTH 1 DROP EYE-BOTH (09:14)
[2022-02-05] MEDS: ACETAMINOPHEN 325 MG TABLET 650 MG PO (09:14)
[2022-02-05] MEDS: CYANOCOBALAMIN (VITAMIN B-12) 500 MCG TABLET 1000 MCG PO (09:14)
[2022-02-05] MEDS: BRIMONIDINE TARTRATE 0.2% OPHTH 1 DROP EYE-BOTH (09:14)
[2022-02-05] MEDS: APIXABAN 5 MG TABLET PO (09:17)
--- NOTE | 2022-02-05 10:24 | PC.SOCIAL ---
Discharge plan: Pt will be discharged to [facility] in [place] today at 11:00 by non-emergency ambulance. Family is aware of private pay cost and agrees to this. ARIANA completed and submitted #[id number]. [facility] aware of plan and discharge time. RN to fax discharge information to [facility] prior to discharge.
--- NOTE | 2022-02-05 12:08 | PC.NURSE ---
Resent d/c information via fax to [facility], with d/c information on meds, and SNF order signed by Dr. Millan.
--- NOTE | 2022-02-05 13:28 | PC.NURSE ---
VITAL SIGNS STABLE. AFEBRILE. LS CLEAR. BS ACTIVE AND PASSING GAS. PATIENT WAS AGREEABLE TO TAKE MIRALAX THIS AM. UP WITH A2, WALKER AND GAIT BELT AND ABLE TO TOLERATE SEVERAL STEPS WITH ASSIST OF 2. RECEIVING SCHEDULED TYLENOL AND PRN TRAMADOL FOR PAIN WITH MODERATE RELIEF. BLOOD SUGAR BEFORE BREAKFAST WAS 250 AND DAUGHTER ADMINISTERED INSULIN 7 UNITS VIA INSULIN PUMP. JOSÉ LUIS BEAULIEU'D. REPORT GIVEN TO ALICIA AT [facility]. PATIENT TRANSFERRED TO [facility] VIA NONEMERGENT TRANSPORT.
--- NOTE | 2022-02-05 15:21 | PC.NURSE ---
Faxed d/c to [facility] with Tramadol for pain, because pt will not take ordered Percocet (d/c on med list). Called [facility] and spoke with Peg West NP about Rx was faxed to [facility].
== END 2022-02-05 11:24 | DRG 184 ==
LOC: ED 12:05 → MEDSURG 02-03 11:49
PROVIDERS: Admitting Provider Internal Medicine; Emergency Provider Family Medicine; PCP Surgery; Visit Provider Internal Medicine
DX: S22.41XA Multiple fractures of ribs, right side, initial encounter for closed fracture (principal); C90.00 Multiple myeloma not having achieved remission; M54.9 Dorsalgia, unspecified; R26.89 Other abnormalities of gait and mobility; W18.2XXA Fall in (into) shower or empty bathtub, initial encounter; Y92.002 Bathroom of unspecified non-institutional (private) residence as the place of occurrence of the external cause; Y93.E1 Activity, personal bathing and showering; Z79.01 Long term (current) use of anticoagulants; G62.9 Polyneuropathy, unspecified; I12.9 Hypertensive chronic kidney disease with stage 1 through stage 4 chronic kidney disease, or unspecified chronic kidney disease; E10.22 Type 1 diabetes mellitus with diabetic chronic kidney disease; N18.31 Chronic kidney disease, stage 3a; Z79.4 Long term (current) use of insulin; G31.84 Mild cognitive impairment of uncertain or unknown etiology; S39.92XA Unspecified injury of lower back, initial encounter; R33.9 Retention of urine, unspecified; S29.9XXA Unspecified injury of thorax, initial encounter; H40.9 Unspecified glaucoma; E78.5 Hyperlipidemia, unspecified; Z85.46 Personal history of malignant neoplasm of prostate; Z86.718 Personal history of other venous thrombosis and embolism; Z86.711 Personal history of pulmonary embolism
CPT/HCPCS: 36415; 51798; 71101; 71250; 80053; 81001; 82550; 82947; 83605; 84443; 85025; 87635; 94761; 97116; 97162; 97165; 97530; 97535; 99284; A9153; A9270; G0378

== ENCOUNTER 2022-02-05 11:21 | Outpatient (CLI) | payer MEDICARE, BC, SELFPAY | END 2022-02-05 11:22 | disposition home or self-care (01) | LOC: AMB 02-21 14:29 | PROVIDERS: PCP Surgery; Visit Provider Family Medicine | DX: S22.31XD Fracture of one rib, right side, subsequent encounter for fracture with routine healing (principal) | CPT/HCPCS: A0425; A0428 ==

== ENCOUNTER 2022-08-30 13:30 | Outpatient (CLI) | payer MEDICARE, BC, SELFPAY | END 2022-08-30 13:31 | disposition home or self-care (01) | LOC: AMB 08-31 09:29 | PROVIDERS: PCP Surgery; Visit Provider Emergency Medicine Emergency Medical Services | DX: R53.1 Weakness (principal) | CPT/HCPCS: A0998 ==

== ENCOUNTER 2022-09-01 14:50 | Outpatient (CLI) | payer MEDICARE, BC, SELFPAY | END 2022-09-01 14:51 | disposition home or self-care (01) | LOC: AMB 09-02 12:26 | PROVIDERS: PCP Surgery; Visit Provider Family Medicine | DX: R41.82 Altered mental status, unspecified (principal) | CPT/HCPCS: A0425; A0427 ==

== ENCOUNTER 2022-09-01 15:26 | Emergency (ER) | payer MEDICARE, BC, SELFPAY ==
[2022-09-01] VITALS (18 sets, daily range): BP systolic 148–178; BP diastolic 74–88; PULSE 59–62; RESP 20; TEMP 36.4; O2SAT 90–97; BMI 32.9
--- NOTE | 2022-09-01 15:34 | CRLHL7_ITS ---
For Patients: As a result of the Century Cures Act, medical imaging exams and procedure reports are released immediately into your electronic medical record. You may view this report before your referring provider. If you have questions, please contact your health care provider. INDICATION: Fall. TECHNIQUE: CT head without contrast. COMPARISON: October 15, 2016. FINDINGS: CSF spaces: Moderate diffuse cerebral and cerebellar cortical volume loss. Brain parenchyma and extra-axial spaces: Moderate chronic white matter ischemic disease the fagan-white differentiation is normal. No sign of mass, hemorrhage, or midline shift. No extra-axial fluid collection. Skull base and calvarium: The visualized paranasal sinuses and mastoid air cells demonstrate no acute or significant findings. Bilateral lens replacement. The visualized orbits are grossly unremarkable. No skull fractures. IMPRESSION: No acute intracranial abnormality. Moderate diffuse cerebral and cerebellar cortical volume loss and chronic white matter ischemic disease. Please note that all CT scans at this facility use dose modulation, iterative reconstruction, and/or weight-based dosing when appropriate to reduce radiation dose to as low as reasonably achievable. Dictated by Jamaal Montero MD @ 09/01/2022 4:04:04 PM (Electronically Signed)
--- NOTE | 2022-09-01 15:34 | CRLHL7_ITS ---
For Patients: As a result of the Cures Act, medical imaging exams and procedure reports are released immediately into your electronic medical record. You may view this report before your referring provider. If you have questions, please contact your health care provider. INDICATION: Trauma. TECHNIQUE: CT cervical spine without contrast. COMPARISON: None. FINDINGS: Vertebrae: Alignment is normal. There are no fractures or suspicious bony lesions. Discs and facet joints: There are diffuse degenerative changes in the disc spaces and facet joints. Extraspinal findings: Paraspinous soft tissues are unremarkable. IMPRESSION: 1. No sign of acute injury. 2. Multilevel degenerative spondylosis. Please note that all CT scans at this facility use dose modulation, iterative reconstruction, and/or weight-based dosing when appropriate to reduce radiation dose to as low as reasonably achievable. Dictated by Jamaal Montero MD @ 09/01/2022 4:07:05 PM (Electronically Signed)
--- NOTE | 2022-09-01 15:34 | ED_ITS ---
HPI - Head Injury General Time Seen by Provider: 15:34 Date Seen: 09/01/22 Chief complaint: Fall/Minor Trauma Stated complaint: Fall on Tuesday, on blood thinner Time Seen by Provider: 09/01/22 15:34 Source: patient, family, EMS, RN notes reviewed and old records reviewed Mode of arrival: EMS Limitations: no limitations History of Present Illness HPI Narrative: Mr. Theodore is a very pleasant well-spoken gentleman in no acute distress who presents to the emergency room for evaluation regarding headache and difficulty with tasks. Patient has a history of multiple myeloma, DVT with PE now on Eliquis as well as diabetes who was noted to have fallen well in the bathroom on TuesdayAugust 30. He notes that he has had dizziness for approximately 3 years and had turned around when he went down. It sounds like he slipped down between a the bath tub and toilet hitting the back of his head on the toilet. He denies any loss of consciousness. EMS was called and they were able to get him back up standing. Since that time he has had some soreness of his right shoulder but otherwise was well that day and yesterday. Today his daughter notes that he says was complaining of a headache. Mr. Theodore describes this actually being frontal. He states that he does not usually get headache and this is unusual for him. He is on Eliquis. Recently he has gone from a insulin pump to giving himself injections with the FlexPen. He has been doing well but his daughter noted today he seemed to have a hard time doing that task and with capping the pen. Patient denies visual changes, neck pain, chest pain, shortness of breath, fever or chills, abdominal pain, numbness or tingling or weakness of the extremities. Related Data Home Medications Medication Instructions Recorded Confirmed acyclovir 400 mg tablet 400 mg PO Q12H 01/31/22 02/02/22 apixaban 5 mg tablet (Eliquis) 5 mg PO Q12H 01/31/22 02/02/22 atorvastatin 20 mg tablet 20 mg PO HS 01/31/22 02/02/22 blood-glucose sensor (Dexcom G6 01/31/22 02/02/22 Sensor device) cholecalciferol (vitamin D3) 1,250 50,000 unit PO .EVERY OTHER WEEK 01/31/22 02/02/22 mcg (50,000 unit) capsule gabapentin 300 mg capsule 600 mg PO BID 01/31/22 02/02/22 glucagon 3 mg/actuation nasal 3 mg intranasal PRN 01/31/22 02/02/22 spray (Baqsimi) brimonidine 0.2 % eye drops 1 drp ophthalmic (eye) Q8H 02/02/22 02/02/22 calcium carbonate 600 mg calcium 600 mg PO DAILY 02/02/22 02/02/22 (1,500 mg) tablet (Calcium) cyanocobalamin (vitamin B-12) 1,000 mcg PO DAILY 02/02/22 02/02/22 1,000 mcg capsule dorzolamide 22.3 mg-timolol 6.8 1 drp ophthalmic (eye) Q12H 02/02/22 02/02/22 mg/mL eye drops glucagon 1 mg/0.2 mL subcutaneous 1 mg subcut DAILY PRN 02/02/22 02/02/22 syringe (Gvoke PFS 1-Pack) loperamide 2 mg capsule (Imodium 2 mg PO QID PRN 02/02/22 02/02/22 A-D) multivitamin 1 tab PO DAILY@12 02/02/22 02/02/22 omeprazole 20 mg capsule,delayed 20 mg PO DAILY@1600 02/02/22 02/02/22 release ondansetron HCl 4 mg tablet 4 mg PO Q8H PRN 02/02/22 02/02/22 oxycodone-acetaminophen 5 mg-325 1 tab PO Q6H PRN 02/02/22 02/02/22 mg tablet (Percocet) sennosides 8.6 mg tablet (senna) 8.6 mg PO HS 02/02/22 02/02/22 Previous Rx's Medication Instructions Recorded insulin glargine 100 unit/mL (3 10 unit (0.1 mL) subcut BID 02/05/22 mL) subcutaneous pen (Lantus Diabetes #15 mL Solostar U-100 Insulin) insulin lispro 100 unit/mL 1 sliding scale dose subcut 02/05/22 subcutaneous pen USEASDIRECTD Diabetes #15 mL Allergies Allergy/AdvReac Type Severity Reaction Status Date / Time clindamycin Allergy Unknown Verified 01/31/22 15:45 furosemide Allergy Unknown Verified 01/31/22 15:45 loratadine Allergy Unknown Verified 01/31/22 15:45 losartan Allergy Unknown Verified 01/31/22 15:45 mold Allergy Unknown Verified 01/31/22 15:45 simvastatin Allergy Unknown Verified 01/31/22 15:45 Review of Systems Status of ROS: Reports: 10 or more systems reviewed and unremarkable except as noted in History and below Const: Denies: fever or chills Eyes: Denies: change in vision or blurry vision ENMT: Denies: neck pain, throat swelling or difficulty swallowing Cardio: Reports: swelling of feet/ankles (Chronic); Denies: chest pain, palpitations or shortness of breath with exertion Resp: Denies: shortness of breath or cough GI: Denies: abdominal pain, nausea, vomiting, diarrhea or difficulty swallowing : Reports: urinary dribbling; Denies: painful urination Musculo: Reports: joint pain (Right shoulder); Denies: back pain or neck pain Integ/Breast: Denies: rash or itching Neuro: Reports: headache (Frontal) and numbness in extremities (Chronic of feet) Allergy/Immuno: Denies: throat swelling PFSH PFS Medical History (Updated 09/01/22 @ 18:26 by Madison Thornton MD) Adenomatous colon polyp Chronic anticoagulation Chronic kidney disease, stage 3a Cognitive impairment Diabetes Diabetes mellitus type 1 with complications Essential hypertension Glaucoma Health care directive on file Hematoma Multiple myeloma Osteoarthritis Peripheral neuropathy Prostate cancer Pulmonary embolism 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), bilateral Unstable gait Urinary incontinence Urinary retention Weakness Social History Highest level of school completed/degree received: Bachelor's degree Smoking Status: Never smoker Do you use any of these nicotine containing products: None Second hand tobacco smoke exposure: No How often do you have a drink containing alcohol: never How often do you have six or more drinks on one occasion: Never AUDIT-C Alcohol total score: 0 Non-prescribed substance use: denies use Caffeine: No Do you think of yourself as: straight/heterosexual Gender Identity: male service: Yes Exam Narrative: Exam Narrative: Alert and oriented. Very well-spoken gentleman in no acute distress. EOM is full with full visual saunders intact. GCS of 15. Scabbing of skin noted on scalp. No significant edema or step-offs palpated of the scalp no midline cervical tenderness with palpation. Face is symmetrical with eyebrow raise smile and tongue is midline. Heart with regular rate and rhythm and lungs are clear to auscultation. Abdomen is soft and nontender. Moving all extremities and strength and motor is in prescribed if appropriate. No evidence of slurred speech, mentation changes, focal neurological weakness. Const: Vital Signs, click to edit/add: Vital Signs - 24 hr 09/01/22 15:38 09/01/22 15:54 09/01/22 15:49 Temperature 97.6 F Pulse Rate 60 Pulse Rate [Right Pulse Oximeter] 59 L Respiratory Rate 20 Blood Pressure 178/78 H Blood Pressure [Ri ght Upper Arm] 165/88 H Pulse Oximetry 97 96 95 Oxygen Delivery Me thod Room Air 09/01/22 15:50 09/01/22 15:51 09/01/22 16:00 Temperature Pulse Rate 60 61 60 Pulse Rate [Right Pulse Oximeter] Respiratory Rate Blood Pressure 165/88 H Blood Pressure [Ri ght Upper Arm] Pulse Oximetry 95 95 95 Oxygen Delivery Me thod 09/01/22 16:03 09/01/22 16:04 09/01/22 16:15 Temperature Pulse Rate 61 60 61 Pulse Rate [Right Pulse Oximeter] Respiratory Rate Blood Pressure 170/88 H Blood Pressure [Ri ght Upper Arm] Pulse Oximetry 95 96 97 Oxygen Delivery Me thod 09/01/22 16:30 09/01/22 16:33 09/01/22 16:45 Temperature Pulse Rate 60 61 62 Pulse Rate [Right Pulse Oximeter] Respiratory Rate Blood Pressure 148/77 H Blood Pressure [Ri ght Upper Arm] Pulse Oximetry 96 96 96 Oxygen Delivery Me thod 09/01/22 17:00 09/01/22 17:03 09/01/22 17:15 Temperature Pulse Rate 61 60 59 L Pulse Rate [Right Pulse Oximeter] Respiratory Rate Blood Pressure 157/83 H Blood Pressure [Ri ght Upper Arm] Pulse Oximetry 96 90 95 Oxygen Delivery Me thod 09/01/22 17:30 09/01/22 17:33 09/01/22 18:03 Temperature Pulse Rate 61 Pulse Rate [Right Pulse Oximeter] Respiratory Rate Blood Pressure 159/85 H 170/74 H Blood Pressure [Ri ght Upper Arm] Pulse Oximetry 91 Oxygen Delivery Me thod Documenting provider has reviewed patient's vital signs: yes Course Course Hospital Course: Upon arrival patient went immediately to CT. CT of head and cervical spine given age accomplished. Will also check CBC, comprehensive panel, troponin, CRP, urinalysis. Reevaluation(s) Reevaluation #1: Patient notes intermittent headache and is headache free at this time. He is informed that head CT is reassuring. Will recheck 2nd EKG and troponin. Reevaluation #2: Patient informed of reassuring laboratory values as well as head neck and chest imaging. Patient agrees that he feels comfortable going home. Daughter is in agreement as well. Vital Signs Vital signs: Initial Vital Signs Temperature 97.6 F 09/01/22 15:38 Temperature Source Temporal Artery Scan 09/01/22 15:38 Pulse Rate 59 L 09/01/22 15:38 Respiratory Rate 20 09/01/22 15:38 Blood Pressure 165/88 H 09/01/22 15:38 Blood Pressure Mean 113 09/01/22 15:38 Blood Pressure Position Sitting 09/01/22 15:38 Pulse Oximetry 97 09/01/22 15:38 Oxygen Delivery Method 09/01/22 15:38 Vital Signs Temperature 97.6 F 09/01/22 15:38 Pulse Rate 59 L 09/01/22 15:38 Respiratory Rate 20 09/01/22 15:38 Blood Pressure 165/88 H 09/01/22 15:38 Pulse Oximetry 97 09/01/22 15:38 Oxygen Delivery Method 09/01/22 15:38 Temperature 97.6 F 09/01/22 15:38 Pulse Rate 61 09/01/22 17:30 Respiratory Rate 20 09/01/22 15:38 Blood Pressure 170/74 H 09/01/22 18:03 Pulse Oximetry 91 09/01/22 17:30 Oxygen Delivery Method 09/01/22 15:38 MDM - Head Injury MDM Narrative Medical decision making narrative: 1. Closed head injury-patient likely with headache after fall on Tuesday. Fortunately CT without any evidence of intracranial bleed or skull fracture. Patient is mentating normally here. He has had GCS of 15 consistently throughout his stay. I do not see any of the challenges with fine or gross motor movement that his daughter had described. Recommend continue monitoring and returning as needed. No evidence of acute coronary syndrome, unusual arrhythmia electrolyte imbalance to explain patient's symptoms. 2. Diabetes -normal blood sugar 3. Disposition-home with daughter. Return for worsening symptoms and as needed. Tylenol as needed for discomfort. Medical Records Attestation: I reviewed the patient's medical records. Lab Data Attestation: I reviewed the patient's lab results. Labs: Lab Results 09/01/22 09/01/22 09/01/22 Range/Units 15:34 15:51 15:51 WBC 6.92 (4.50-11.00) K/uL RBC 4.57 (4.30-5.90) m/uL Hgb 14.1 (13.5-17.5) gm/dL Hct 43.7 (37.0-53.0) % MCV 96 (80-100) fL MCH 31 (26-34) pg MCHC 32 (32-36) gm/dL RDW Coeff of Teresa 13.1 (11.5-15.5) % Plt Count 244 (140-440) K/uL Neut % (Auto) 65.8 (42.0-72.0) % Lymph % (Auto) 25.3 (20-44) % Erath % (Auto) 4.2 (0.0-11.0) % Eos % (Auto) 3.5 (0.0-7.0) % Baso % (Auto) 0.3 (0.0-3.0) % Neut # (Auto) 4.56 (1.7-7.0) K/uL Lymph # (Auto) 1.75 (0.90-2.90) K/uL Erath # (Auto) 0.30 (0.00-0.90) K/UL Eos # (Auto) 0.24 (0.00-0.50) K/uL Baso # (Auto) 0.02 (0.00-0.30) K/uL Sodium 137 (135-149) mmol/L Potassium 4.3 (3.6-5.1) mmol/L Chloride 103 (96-114) mmol/L Carbon Dioxide 32 (20-32) mmol/L BUN 23 (7-30) mg/dL Creatinine 1.3 (0.5-1.5) mg/dL Estimated Creat Clear 43.81 Estimated GFR 55 ml/min Glucose 92 (60-115) mg/dL Calcium 8.7 (8.4-10.6) mg/dL Total Bilirubin 0.9 (0.1-1.5) mg/dL AST 32 (12-35) U/L ALT 18 (4-50) U/L Alkaline Phosphatase 80 (40-150) U/L Total Protein 6.2 (6.0-8.3) g/dL Albumin 3.5 (3.3-5.0) g/dL SARS-CoV-2 (PCR) (Negative) Influenza Type A (PCR) (Negative) Influenza Type B (PCR) (Negative) RSV (PCR) (Negative) POC Troponin I 0.01 (0.01-0.04) ng/ml 09/01/22 09/01/22 Range/Units 15:58 18:00 WBC (4.50-11.00) K/uL RBC (4.30-5.90) m/uL Hgb (13.5-17.5) gm/dL Hct (37.0-53.0) % MCV (80-100) fL MCH (26-34) pg MCHC (32-36) gm/dL RDW Coeff of Teresa (11.5-15.5) % Plt Count (140-440) K/uL Neut % (Auto) (42.0-72.0) % Lymph % (Auto) (20-44) % Erath % (Auto) (0.0-11.0) % Eos % (Auto) (0.0-7.0) % Baso % (Auto) (0.0-3.0) % Neut # (Auto) (1.7-7.0) K/uL Lymph # (Auto) (0.90-2.90) K/uL Erath # (Auto) (0.00-0.90) K/UL Eos # (Auto) (0.00-0.50) K/uL Baso # (Auto) (0.00-0.30) K/uL Sodium (135-149) mmol/L Potassium (3.6-5.1) mmol/L Chloride (96-114) mmol/L Carbon Dioxide (20-32) mmol/L BUN (7-30) mg/dL Creatinine (0.5-1.5) mg/dL Estimated Creat Clear Estimated GFR ml/min Glucose (60-115) mg/dL Calcium (8.4-10.6) mg/dL Total Bilirubin (0.1-1.5) mg/dL AST (12-35) U/L ALT (4-50) U/L Alkaline Phosphatase (40-150) U/L Total Protein (6.0-8.3) g/dL Albumin (3.3-5.0) g/dL SARS-CoV-2 (PCR) Negative SARS-CoV-2 (Negative) Influenza Type A (PCR) Negative PCR FLU A (Negative) Influenza Type B (PCR) Negative PCR FLU B (Negative) RSV (PCR) Negative PCR RSV (Negative) POC Troponin I 0.01 (0.01-0.04) ng/ml Imaging Data CT scan - head: Attestation: I have reviewed the pertinent imaging results. My impression: No evidence of acute bleed Radiologist's impression: CSF spaces: Moderate diffuse cerebral and cerebellar cortical volume loss. Brain parenchyma and extra-axial spaces: Moderate chronic white matter ischemic disease the fagan-white differentiation is normal. No sign of mass, hemorrhage, or midline shift. No extra-axial fluid collection. Skull base and calvarium: The visualized paranasal sinuses and mastoid air cells demonstrate no acute or significant findings. Bilateral lens replacement. The visualized orbits are grossly unremarkable. No skull fractures. IMPRESSION: No acute intracranial abnormality. Moderate diffuse cerebral and cerebellar cortical volume loss and chronic white matter ischemic disease. Cervical spine CT: Attestation: I have reviewed the pertinent imaging results. My impression: Degenerative disc disease but no fractures noted. Radiologist's impression: Vertebrae: Alignment is normal. There are no fractures or suspicious bony lesions. Discs and facet joints: There are diffuse degenerative changes in the disc spaces and facet joints. Extraspinal findings: Paraspinous soft tissues are unremarkable. IMPRESSION: 1. No sign of acute injury. 2. Multilevel degenerative spondylosis. Chest x-ray: Attestation: I have reviewed the pertinent imaging results. Radiologist's impression: Lungs and pleural spaces: Patchy right basilar airspace opacities, likely atelectasis. No sign of infiltrate or mass. No sign of pleural effusion. No pneumothorax. Bones and soft tissues: No significant findings. Chronic bilateral rib fractures. IMPRESSION: No acute findings and no significant changes from the prior exam. ECG Data Attestation: I personally reviewed and interpreted this ECG as follows: ECG interpretation date: 09/01/22 Interpretation: EKG 1. By my read shows sinus bradycardia at a rate of 59. I do not note any acute ST or T-wave changes EKG 2. By my read shows sinus arrhythmia with occasional PVC at a rate of 61. No acute ST or T-wave changes are noted. Discharge Plan Discharge Clinical Impression: Intermittent headache, Fall Patient Disposition: Home w/ Parent or Adult Condition: Unchanged Additional Instructions: Seek medical attention for onset of new or worsening symptoms. Prescriptions: No Action atorvastatin 20 mg tablet 20 mg PO HS Label Comments: TAKE ONE TABLET BY MOUTH EVERY DAY acyclovir 400 mg tablet 400 mg PO Q12H Label Comments: TAKE ONE TABLET BY MOUTH TWICE A DAY gabapentin 300 mg capsule 600 mg PO BID Label Comments: TAKE 1 CAPSULE(300MG) BY MOUTH THREE TIMES DAILY cholecalciferol (vitamin D3) 1,250 mcg (50,000 unit) capsule 50,000 unit PO .EVERY OTHER WEEK Label Comments: TAKE ONE CAPSULE BY MOUTH EVERY OTHER WEEK (DME) [employer] Wireless G6 Sensor Device MISCELLANEOUS Hold Instructions: Doctor's Order Label Comments: DIRECTED. CHANGE EVERY 10 DAYS Eliquis 5 mg tablet 5 mg PO Q12H Label Comments: TAKE ONE TABLET BY MOUTH TWICE A DAY Baqsimi 3 mg/actuation spray,non-aerosol 3 mg INTRANASAL PRN Label Comments: INHALE INTO AFFECTED NOSTRIL(S). WHEN UNABLE TO TREAT LOW BLOOD SUGAR (HYPOGLYCEMIA) WITH FOOD/ DRINK, GIVE ONE ACTUATION (3MG) INTO ONE NOSTRIL brimonidine 0.2 % drops 1 drp OPHTHALMIC (EYE) Q8H Label Comments: INSTILL 1 DROP IN BOTH EYES THREE TIMES DAILY Rx Instructions: USE IN BOTH EYES dorzolamide-timolol 22.3-6.8 mg/mL drops 1 drp OPHTHALMIC (EYE) Q12H Label Comments: PLACE ONE DROP IN BOTH EYES TWICE A DAY Rx Instructions: PLACE ONE DROP IN BOTH EYES ondansetron HCl 4 mg tablet 4 mg PO Q8H PRN Label Comments: TAKE 1 TABLET (4 MG) BY MOUTH EVERY 8 HOURS IF NEEDED FOR NAUSEA/VOMITING. omeprazole 20 mg capsule,delayed release(DR/EC) 20 mg PO DAILY@1600 Label Comments: TAKE ONE CAPSULE BY MOUTH EVERY DAY BEFORE A MEAL Gvoke PFS 1-Pack Syringe 1 mg/0.2 mL syringe 1 mg SUBCUT DAILY PRN calcium carbonate [Calcium 600] 600 mg calcium (1,500 mg) tablet 600 mg PO DAILY cyanocobalamin (vitamin B-12) 1,000 mcg capsule 1,000 mcg PO DAILY loperamide [Imodium A-D] 2 mg capsule 2 mg PO QID PRN sennosides [senna] 8.6 mg tablet 8.6 mg PO HS multivitamin Tablet 1 tab PO DAILY@12 oxycodone-acetaminophen [Percocet] 5-325 mg tablet 1 tab PO Q6H PRN insulin glargine [Lantus Solostar U-100 Insulin] 100 unit/mL (3 mL) insulin pen 10 unit subcut BID Qty: 15 3RF insulin lispro 100 unit/mL insulin pen 1 sliding scale dose subcut USEASDIRECTD Qty: 15 2RF Follow Up/Referrals: Macario Pollard MD [Primary Care Provider] - Stand Alone Forms: [facility] Info Instructions
--- NOTE | 2022-09-01 15:58 | CRLHL7_ITS ---
For Patients: As a result of the Century Cures Act, medical imaging exams and procedure reports are released immediately into your electronic medical record. You may view this report before your referring provider. If you have questions, please contact your health care provider. INDICATION: Altered mentation. TECHNIQUE: Chest 1 views. COMPARISON: CT, February 02, 2022. October 11, 2020 FINDINGS: Cardiovascular and mediastinum: Stable heart size and vasculature. Known mediastinal mass better demonstrated on prior CT. Lungs and pleural spaces: Patchy right basilar airspace opacities, likely atelectasis. No sign of infiltrate or mass. No sign of pleural effusion. No pneumothorax. Bones and soft tissues: No significant findings. Chronic bilateral rib fractures. IMPRESSION: No acute findings and no significant changes from the prior exam. Dictated by Jamaal Montero MD @ 09/01/2022 4:19:38 PM (Electronically Signed)
[2022-09-01 16:00] LABS: Basophils Absolute Auto 0.02 K/uL (0.00-0.30); Basophils Percent Auto 0.3 % (0.0-3.0); Eosinophils Absolute Auto 0.24 K/uL (0.00-0.50); Eosinophils Percent Auto 3.5 % (0.0-7.0); Hematocrit 43.7 % (37.0-53.0); Hemoglobin* 14.1 gm/dL (13.5-17.5); Immature Granulocytes Abs Auto 0.06 K/uL (0.00-0.30); Immature Granulocytes Pct Auto 0.9 %; Lymphocytes Absolute Auto 1.75 K/uL (0.90-2.90); Lymphocytes Percent Auto 25.3 % (20-44); Mean Corpuscular HGB Conc 32 gm/dL (32-36); Mean Corpuscular Hemoglobin 31 pg (26-34); Mean Corpuscular Volume 96 fL (80-100); Monocytes Percent Auto 4.2 % (0.0-11.0); Neutrophils Absolute Auto 4.56 K/uL (1.7-7.0); Neutrophils Percent Auto 65.8 % (42.0-72.0); Platelet Count* 244 K/uL (140-440); RDW Coefficient of Variation % 13.1 % (11.5-15.5); Red Blood Count 4.57 m/uL (4.30-5.90); White Blood Count* 6.92 K/uL (4.50-11.00)
[2022-09-01 16:07] LABS: Slide Review Reflex No
[2022-09-01 16:16] LABS: Albumin* 3.5 g/dL (3.3-5.0)
[2022-09-01 16:17] LABS: Chloride* 103 mmol/L (96-114); Potassium* 4.3 mmol/L (3.6-5.1); Sodium* 137 mmol/L (135-149)
[2022-09-01 16:17] LABS: Troponin, Point-of-Care* 0.01 ng/ml (0.01-0.04)
[2022-09-01 16:19] LABS: Aspartate Amino Transferase* 32 U/L (12-35); Bilirubin Total* 0.9 mg/dL (0.1-1.5); Carbon Dioxide* 32 mmol/L (20-32); Creatinine* 1.3 mg/dL (0.5-1.5); Est. Creatinine Clearance* 43.81; Estimated Glomerular Filt Rate 55 ml/min
[2022-09-01 16:20] LABS: Alanine Aminotransferase* 18 U/L (4-50); Alkaline Phosphatase* 80 U/L (40-150); Blood Urea Nitrogen* 23 mg/dL (7-30); Calcium* 8.7 mg/dL (8.4-10.6); Glucose* 92 mg/dL (60-115); Total Protein* 6.2 g/dL (6.0-8.3)
[2022-09-01 16:56] LABS: PCR FLU A Negative PCR FLU A (Negative); PCR FLU B Negative PCR FLU B (Negative); PCR RSV Negative PCR RSV (Negative)
[2022-09-01 16:59] LABS: SARS PCR* Negative SARS-CoV-2 (Negative)
[2022-09-01 18:17] LABS: Troponin, Point-of-Care* 0.01 ng/ml (0.01-0.04)
== END 2022-09-01 18:40 | disposition home or self-care (01) ==
PROVIDERS: Emergency Provider Family Medicine; PCP Surgery
DX: R51.9 Headache, unspecified (principal); E11.9 Type 2 diabetes mellitus without complications; W19.XXXA Unspecified fall, initial encounter
CPT/HCPCS: 36415; 70450; 71045; 72125; 80053; 81001; 84484; 85025; 86140; 87502; 87634; 87635; 93005; 94761; 99284; 99285

== ENCOUNTER 2022-09-07 13:51 | Outpatient (CLI) | payer MEDICARE, BC, SELFPAY | END 2022-09-07 13:52 | disposition home or self-care (01) | LOC: AMB 09-09 00:23 | PROVIDERS: PCP Surgery; Visit Provider Family Medicine | DX: R55 Syncope and collapse (principal); R41.82 Altered mental status, unspecified | CPT/HCPCS: A0425; A0427 ==

== ENCOUNTER 2022-09-07 14:27 | Emergency (ER) | payer MEDICARE, BC, SELFPAY ==
[2022-09-07 14:31] VITALS: BP 125/60; PULSE 55; RESP 16; TEMP 35.6; O2SAT 98
--- NOTE | 2022-09-07 14:53 | ED_ITS ---
HPI - General Adult General Time Seen by Provider: 14:53 Date Seen: 09/07/22 Chief complaint: Syncope/Fainted Stated complaint: Stroke-like symptoms Time Seen by Provider: 09/07/22 14:36 Source: patient, family, EMS, RN notes reviewed and other (spoke with Dr. Pollard) Mode of arrival: EMS Limitations: no limitations History of Present Illness HPI narrative: Patient is an 82-year-old male referred by a Dr. Pollard from clinic. Patient was scheduled to have a 130 appointment for a scalp lesion removal. Patient was in the bathroom prior to being seen attempting to have a bowel movement. He states it was a little difficult. His daughter is here with him and reports that the Revlimid that he is on does tend to make him constipated. He was found to be some to over in the bathroom. He had a pulse the whole time and was breathing but was slow to respond. He was out for a bit about 5-10 minutes for him to recover to talking. At 20 minutes he was fully talking and conversive but was too weak and could not stand. They reported his blood pressure at the lowest went down to 90/50 and he did have bradycardic pulse down to 50. They also report he fell about a week ago and was seen here in the ED. They wonder if that could have anything with his current symptoms. Dr. Benavidez offered feels this is likely a vasovagal episode but feels he may need further evaluation than what they can provide in the clinic to rule out other etiologies. On arrival here, patient is alert interactive. He is hard of hearing but very pleasant. He denies any pain anywhere. Denies any sense of knowing that he was going to pass out. He states it just happen. Did not recollect any arrhythmia type sensation before this happen. He has not been sick with anything, no cough or cold symptoms, not short of breath at this time, no abdominal pain. States he does have some baseline lower extremity edema which is not worse, also reports he has peripheral neuropathy. Related Data Home Medications Medication Instructions Recorded Confirmed acyclovir 400 mg tablet 400 mg PO Q12H 01/31/22 02/02/22 apixaban 5 mg tablet (Eliquis) 5 mg PO Q12H 01/31/22 02/02/22 atorvastatin 20 mg tablet 20 mg PO HS 01/31/22 02/02/22 blood-glucose sensor (Dexcom G6 01/31/22 02/02/22 Sensor device) cholecalciferol (vitamin D3) 1,250 50,000 unit PO .EVERY OTHER WEEK 01/31/22 02/02/22 mcg (50,000 unit) capsule gabapentin 300 mg capsule 600 mg PO BID 01/31/22 02/02/22 glucagon 3 mg/actuation nasal 3 mg intranasal PRN 01/31/22 02/02/22 spray (Baqsimi) brimonidine 0.2 % eye drops 1 drp ophthalmic (eye) Q8H 02/02/22 02/02/22 calcium carbonate 600 mg calcium 600 mg PO DAILY 02/02/22 02/02/22 (1,500 mg) tablet (Calcium) cyanocobalamin (vitamin B-12) 1,000 mcg PO DAILY 02/02/22 02/02/22 1,000 mcg capsule dorzolamide 22.3 mg-timolol 6.8 1 drp ophthalmic (eye) Q12H 02/02/22 02/02/22 mg/mL eye drops glucagon 1 mg/0.2 mL subcutaneous 1 mg subcut DAILY PRN 02/02/22 02/02/22 syringe (Gvoke PFS 1-Pack) loperamide 2 mg capsule (Imodium 2 mg PO QID PRN 02/02/22 02/02/22 A-D) multivitamin 1 tab PO DAILY@12 02/02/22 02/02/22 omeprazole 20 mg capsule,delayed 20 mg PO DAILY@1600 02/02/22 02/02/22 release ondansetron HCl 4 mg tablet 4 mg PO Q8H PRN 02/02/22 02/02/22 oxycodone-acetaminophen 5 mg-325 1 tab PO Q6H PRN 02/02/22 02/02/22 mg tablet (Percocet) sennosides 8.6 mg tablet (senna) 8.6 mg PO HS 02/02/22 02/02/22 Previous Rx's Medication Instructions Recorded insulin glargine 100 unit/mL (3 10 unit (0.1 mL) subcut BID 02/05/22 mL) subcutaneous pen (Lantus Diabetes #15 mL Solostar U-100 Insulin) insulin lispro 100 unit/mL 1 sliding scale dose subcut 02/05/22 subcutaneous pen USEASDIRECTD Diabetes #15 mL Allergies Allergy/AdvReac Type Severity Reaction Status Date / Time clindamycin Allergy Unknown Verified 01/31/22 15:45 furosemide Allergy Unknown Verified 01/31/22 15:45 loratadine Allergy Unknown Verified 01/31/22 15:45 losartan Allergy Unknown Verified 01/31/22 15:45 mold Allergy Unknown Verified 01/31/22 15:45 simvastatin Allergy Unknown Verified 01/31/22 15:45 Review of Systems Status of ROS: Reports: 10 or more systems reviewed and unremarkable except as noted in History and below [facility] Medical History Adenomatous colon polyp Chronic anticoagulation Chronic kidney disease, stage 3a Cognitive impairment Diabetes Diabetes mellitus type 1 with complications Essential hypertension Glaucoma Health care directive on file Hematoma Multiple myeloma Osteoarthritis Peripheral neuropathy Prostate cancer Pulmonary embolism 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), bilateral Unstable gait Urinary incontinence Urinary retention Weakness Social History Highest level of school completed/degree received: Bachelor's degree Smoking Status: Never smoker Do you use any of these nicotine containing products: None Second hand tobacco smoke exposure: No How often do you have a drink containing alcohol: never How often do you have six or more drinks on one occasion: Never AUDIT-C Alcohol total score: 0 Non-prescribed substance use: denies use Caffeine: No Do you think of yourself as: straight/heterosexual Gender Identity: male service: Yes Exam Const: Vital Signs, click to edit/add: Vital Signs - 24 hr 09/07/22 14:31 Temperature 96.0 F L Pulse Rate [Left P ulse Oximeter] 55 L Respiratory Rate 16 Blood Pressure [Ri ght Upper Arm] 125/60 Pulse Oximetry 98 Oxygen Delivery Me thod Nasal Cannula Documenting provider has reviewed patient's vital signs: yes Common normals: no apparent distress, average body habitus, oriented x3, no limitations and alert General appearance: cooperative, comfortable, well kempt, well developed and frail appearing Orientation/consciousness: Yes awake HENMT: Common normals: normocephalic, head/scalp atraumatic ( Does have 2 nodular looking lesions on the top of his scalp.), external nose normal, nasal mucous membranes and turbinates normal and moist oral mucous membranes Head and scalp: normocephalic and atraumatic ( Does have 2 nodular looking lesions on the top of his scalp.) Nose: external nose normal and nasal mucous membranes and turbinates normal Eye: Common normals: PERRL, EOMs intact bilaterally, conjunctivae normal and no scleral icterus Conjunctiva: conjunctiva(e) normal Pupil: PERRL Neck & C-Spine: Common normals: full ROM, no lymphadenopathy, supple, no meningeal signs, no JVD and thyroid normal Thyroid: thyroid normal Chest: Common normals: inspection of chest normal and palpation of chest normal Resp: Common normals: normal respiratory effort, no retractions, no use of accessory muscles and clear to auscultation bilaterally Auscultation: clear to auscultation bilaterally Cardio: Common normals: no JVD, regular rate, regular rhythm, S1 normal heart sound, S2 normal heart sound, no gallops, no clicks and no murmurs Rate: regular rate Rhythm: regular rhythm Heart sounds: S1 normal and S2 normal GI: Common normals: Normal to inspection, nondistended, normoactive bowel sounds present, soft to palpation, non-tender, no hepatosplenomegaly and no masses Palpation: soft and no hepatosplenomegaly Extremity: Other: Some trace lower extremity edema, do not appreciate significant edema at this time. Neuro: Common normals: oriented x3, CN's II-XII intact bilaterally, moves all extremities and no focal motor deficits Sensorium/orientation: awake and alert Meningeal signs: no meningeal signs Speech: speech normal Psych: Appearance: well kempt Course Course Hospital Course: Will have him on pulse oximetry and cardiac monitoring looking for hypoxia arrhythmia. Will do full complement of labs, did discuss doing a 3 hour troponin. This episode happened maybe at about 110-120 per his daughter. It is already almost 3:00 p.m.. We will plan on a 3 hour troponin around 415-430 p.m.. Did discuss doing repeat neuro imaging and they would like to proceed with a head CT. He is not having any focal deficits at this time. Reviewed that would be unlikely to have a late bleed cause a symptom like that and then returned back to baseline. Nonetheless, I do not think it is inappropriate to repeat a head CT. He is on blood thinners but has had a history of recurrent DVTs, will do a screening D-dimer. Reevaluation(s) Reevaluation #1: patient is feeling fine at this time, no concerns. Will plan on discharging to home. Discussed if he has recurrent episodes, would recommend further evaluation and such things may consider echo, outpatient cardiac monitoring et c.. If they have any further concerns, they can always return here or seek re- evaluation the clinic, whichever they feel fits their needs at the time. Time: 17:53 Vital Signs Vital signs: Initial Vital Signs Temperature 96.0 F L 09/07/22 14:31 Temperature Source Temporal Artery Scan 09/07/22 14:31 Pulse Rate 55 L 09/07/22 14:31 Pulse Rhythm 09/07/22 14:31 Respiratory Rate 16 09/07/22 14:31 Blood Pressure 125/60 09/07/22 14:31 Blood Pressure Mean 81 09/07/22 14:31 Blood Pressure Position Semi-Fowlers 09/07/22 14:31 Pulse Oximetry 98 09/07/22 14:31 Oxygen Delivery Method 09/07/22 14:31 Vital Signs Temperature 96.0 F L 09/07/22 14:31 Pulse Rate 55 L 09/07/22 14:31 Respiratory Rate 16 09/07/22 14:31 Blood Pressure 125/60 09/07/22 14:31 Pulse Oximetry 98 09/07/22 14:31 Oxygen Delivery Method 09/07/22 14:31 Temperature 96.0 F L 09/07/22 14:31 Pulse Rate 55 L 09/07/22 14:31 Respiratory Rate 16 09/07/22 14:31 Blood Pressure 125/60 09/07/22 14:31 Pulse Oximetry 98 09/07/22 14:31 Oxygen Delivery Method 09/07/22 14:31 Medical Decision Making Lab Data Lab results reviewed: Yes I reviewed the patient's lab results Lab results narrative: Note patient has elevated pCO2 on his labs. He was on nasal cannula oxygen and on further discussion, is not on this chronically. His nasal cannula oxygen was stopped. Believe this was initiated by EMS EN route. Labs: Lab Results 09/07/22 09/07/22 09/07/22 Range/Units 15:10 16:10 16:10 WBC 8.32 (4.50-11.00) K/uL RBC 4.68 (4.30-5.90) m/uL Hgb 14.4 (13.5-17.5) gm/dL Hct 45.7 (37.0-53.0) % MCV 98 (80-100) fL MCH 31 (26-34) pg MCHC 32 (32-36) gm/dL RDW Coeff of Teresa 13.1 (11.5-15.5) % Plt Count 256 (140-440) K/uL Neut % (Auto) 66.2 (42.0-72.0) % Lymph % (Auto) 21.0 (20-44) % Canadian % (Auto) 9.9 (0.0-11.0) % Eos % (Auto) 2.0 (0.0-7.0) % Baso % (Auto) 0.4 (0.0-3.0) % Neut # (Auto) 5.51 (1.7-7.0) K/uL Lymph # (Auto) 1.75 (0.90-2.90) K/uL Canadian # (Auto) 0.80 (0.00-0.90) K/UL Eos # (Auto) 0.17 (0.00-0.50) K/uL Baso # (Auto) 0.03 (0.00-0.30) K/uL D-Dimer Quant (PE/DVT) < 0.27 (0.00-0.50) ug/ml VBG pH (7.32-7.43) VBG pCO2 (40-50) mmHG VBG pO2 (25-47) mmHG VBG HCO3 (21-28) mmol/L Sodium (135-149) mmol/L Potassium (3.6-5.1) mmol/L Chloride (96-114) mmol/L Carbon Dioxide (20-32) mmol/L BUN (7-30) mg/dL Creatinine (0.5-1.5) mg/dL Estimated GFR ml/min Glucose (60-115) mg/dL Lactate (0.5-1.9) mmol/L Calcium (8.4-10.6) mg/dL Total Bilirubin (0.1-1.5) mg/dL AST (12-35) U/L ALT (4-50) U/L Alkaline Phosphatase (40-150) U/L Troponin I (0.01-0.04) ng/mL NT-Pro-B Natriuret Pep pg/mL Total Protein (6.0-8.3) g/dL Albumin (3.3-5.0) g/dL SARS-CoV-2 (PCR) Negative SARS-CoV-2 (Negative) Influenza Type A (PCR) Negative PCR FLU A (Negative) Influenza Type B (PCR) Negative PCR FLU B (Negative) RSV (PCR) Negative PCR RSV (Negative) 09/07/22 09/07/22 09/07/22 Range/Units 16:10 16:10 16:10 WBC (4.50-11.00) K/uL RBC (4.30-5.90) m/uL Hgb (13.5-17.5) gm/dL Hct (37.0-53.0) % MCV (80-100) fL MCH (26-34) pg MCHC (32-36) gm/dL RDW Coeff of Teresa (11.5-15.5) % Plt Count (140-440) K/uL Neut % (Auto) (42.0-72.0) % Lymph % (Auto) (20-44) % Canadian % (Auto) (0.0-11.0) % Eos % (Auto) (0.0-7.0) % Baso % (Auto) (0.0-3.0) % Neut # (Auto) (1.7-7.0) K/uL Lymph # (Auto) (0.90-2.90) K/uL Canadian # (Auto) (0.00-0.90) K/UL Eos # (Auto) (0.00-0.50) K/uL Baso # (Auto) (0.00-0.30) K/uL D-Dimer Quant (PE/DVT) (0.00-0.50) ug/ml VBG pH (7.32-7.43) VBG pCO2 (40-50) mmHG VBG pO2 (25-47) mmHG VBG HCO3 (21-28) mmol/L Sodium 139 (135-149) mmol/L Potassium 4.2 (3.6-5.1) mmol/L Chloride 103 (96-114) mmol/L Carbon Dioxide 34 H (20-32) mmol/L BUN 29 (7-30) mg/dL Creatinine 1.5 (0.5-1.5) mg/dL Estimated GFR 46 ml/min Glucose 69 (60-115) mg/dL Lactate 1.1 (0.5-1.9) mmol/L Calcium 8.8 (8.4-10.6) mg/dL Total Bilirubin 0.7 (0.1-1.5) mg/dL AST 19 (12-35) U/L ALT 19 (4-50) U/L Alkaline Phosphatase 92 (40-150) U/L Troponin I < 0.01 L Cancelled (0.01-0.04) ng/mL NT-Pro-B Natriuret Pep 371 pg/mL Total Protein 6.2 (6.0-8.3) g/dL Albumin 3.6 (3.3-5.0) g/dL SARS-CoV-2 (PCR) (Negative) Influenza Type A (PCR) (Negative) Influenza Type B (PCR) (Negative) RSV (PCR) (Negative) 09/07/22 Range/Units 16:10 WBC (4.50-11.00) K/uL RBC (4.30-5.90) m/uL Hgb (13.5-17.5) gm/dL Hct (37.0-53.0) % MCV (80-100) fL MCH (26-34) pg MCHC (32-36) gm/dL RDW Coeff of Teresa (11.5-15.5) % Plt Count (140-440) K/uL Neut % (Auto) (42.0-72.0) % Lymph % (Auto) (20-44) % Canadian % (Auto) (0.0-11.0) % Eos % (Auto) (0.0-7.0) % Baso % (Auto) (0.0-3.0) % Neut # (Auto) (1.7-7.0) K/uL Lymph # (Auto) (0.90-2.90) K/uL Canadian # (Auto) (0.00-0.90) K/UL Eos # (Auto) (0.00-0.50) K/uL Baso # (Auto) (0.00-0.30) K/uL D-Dimer Quant (PE/DVT) (0.00-0.50) ug/ml VBG pH 7.320 (7.32-7.43) VBG pCO2 66 H* (40-50) mmHG VBG pO2 25.2 (25-47) mmHG VBG HCO3 34 H (21-28) mmol/L Sodium (135-149) mmol/L Potassium (3.6-5.1) mmol/L Chloride (96-114) mmol/L Carbon Dioxide (20-32) mmol/L BUN (7-30) mg/dL Creatinine (0.5-1.5) mg/dL Estimated GFR ml/min Glucose (60-115) mg/dL Lactate (0.5-1.9) mmol/L Calcium (8.4-10.6) mg/dL Total Bilirubin (0.1-1.5) mg/dL AST (12-35) U/L ALT (4-50) U/L Alkaline Phosphatase (40-150) U/L Troponin I (0.01-0.04) ng/mL NT-Pro-B Natriuret Pep pg/mL Total Protein (6.0-8.3) g/dL Albumin (3.3-5.0) g/dL SARS-CoV-2 (PCR) (Negative) Influenza Type A (PCR) (Negative) Influenza Type B (PCR) (Negative) RSV (PCR) (Negative) Imaging Data CT scan - head: Attestation: I have reviewed the pertinent imaging results. Radiologist's impression: [facility]: [facility] Site . Site : 1940 Study: CT Head W/O STROKE PROTOCOL-09/07/2022 3:33:14 PM Ordering Physician: Elizabeth Bhatt Final Report: Indication: Syncope, recent fall Technique: Volumetric multidetector CT images of the head were obtained without the administration of low osmolar intravenous contrast. Comparison: CT head September 01, 2022 Findings: There is no intra-axial or extra-axial fluid collection. There is no mass effect or midline shift. There is age-related cortical atrophy with mild sulcal widening and ex vacuo dilatation of the lateral ventricles. There are chronic small vessel disease changes in the subcortical and periventricular white matter without lost fagan-white differentiation. The orbits and their contents are grossly within normal limits. There are circumscribed lucencies within the bony calvarium consistent with history of multiple myeloma. Otherwise, the bony calvarium is intact. The paranasal sinuses are clear. The mastoid air cells are well aerated. Impression: 1. Age-related changes of the brain without acute intracranial abnormality. A report receipt was sent to Nova Johnson at 3:53 p.m. September 07, [address] note [address] all CT scans at this facility use dose modulation, iterative reconstruction, and/or weight-based dosing when appropriate to reduce radiation dose to as low as reasonably achievable. Dictated by Narciso Taylor MD @ 09/07/2022 3:57:03 PM (Electronic Signature) Chest x-ray: Attestation: I have reviewed the pertinent imaging results. Radiologist's impression: Patient: [facility] Facility: [facility] Site . Site : 1940 Study: XRay Chest 1 VIEW-09/07/2022 3:43:40 PM Ordering Physician: Elizabeth Bhatt Final Report: INDICATION: Syncope TECHNIQUE: Chest radiograph 1 view COMPARISON: 09/01/2022, 10/11/2020 FINDINGS: The sensitivity and specificity of the exam are moderately limited by the patient`s body habitus. Mediastinum: The mediastinum is normal in appearance. The heart silhouette is normal in size and morphology. Embolization coils are seen near the AP window. Lung: Small lung volumes are present with mild pulmonary vascular congestion and bibasilar atelectasis. There is an ill-defined density measuring 1.8 cm in the right suprahilar region. No sign of pleural effusion seen. No pneumothorax is identified. Bone and Soft tissue: Unremarkable for age. IMPRESSIONS: 1. Small lung volumes are present with mild pulmonary vascular congestion and bibasilar atelectasis. 2. There is an ill-defined density measuring 1.8 cm in the right suprahilar region. Further evaluation with chest CT is recommended. Dictated by Jackson Carter MD @ 09/07/2022 5:48:26 PM Dictated by: Jackson Carter MD @ 09/07/2022 17:48:30 (Electronic Signature) ECG Data Attestation: I personally reviewed and interpreted this ECG as follows: ( Sinus bradycardia, 55 beats per minute. No evidence of any ischemia. Does have some flattening, possibly flipped T-waves lead 1 and aVL without any ST segment changes. QT corrected 422 milliseconds.) Critical Care Time Critical Care Time Critical Care Time: No Discharge Plan Discharge Clinical Impression: Syncope Patient Disposition: Home, Self-Care Condition: Stable Instructions: Syncope in Older Adults (ED) Additional Instructions: Reschedule your appointment in clinic with Dr. Pollard. If you have recurrent episodes, do recommend further workup. Agree with Dr. Pollard at this time this seems to have been vasovagal syncope but should have further work up if any further episodes. Take copy of chest x-ray report to your follow-up visit, your primary can order follow-up chest imaging if felt clinically indicated. Activity Level: Activity as Tolerated Prescriptions: No Action atorvastatin 20 mg tablet 20 mg PO HS Label Comments: TAKE ONE TABLET BY MOUTH EVERY DAY acyclovir 400 mg tablet 400 mg PO Q12H Label Comments: TAKE ONE TABLET BY MOUTH TWICE A DAY gabapentin 300 mg capsule 600 mg PO BID Label Comments: TAKE 1 CAPSULE(300MG) BY MOUTH THREE TIMES DAILY cholecalciferol (vitamin D3) 1,250 mcg (50,000 unit) capsule 50,000 unit PO .EVERY OTHER WEEK Label Comments: TAKE ONE CAPSULE BY MOUTH EVERY OTHER WEEK (DME) Dexcom G6 Sensor Device MISCELLANEOUS Hold Instructions: Doctor's Order Label Comments: DIRECTED. CHANGE EVERY 10 DAYS Eliquis 5 mg tablet 5 mg PO Q12H Label Comments: TAKE ONE TABLET BY MOUTH TWICE A DAY Baqsimi 3 mg/actuation spray,non-aerosol 3 mg INTRANASAL PRN Label Comments: INHALE INTO AFFECTED NOSTRIL(S). WHEN UNABLE TO TREAT LOW BLOOD SUGAR (HYPOGLYCEMIA) WITH FOOD/ DRINK, GIVE ONE ACTUATION (3MG) INTO ONE NOSTRIL brimonidine 0.2 % drops 1 drp OPHTHALMIC (EYE) Q8H Label Comments: INSTILL 1 DROP IN BOTH EYES THREE TIMES DAILY Rx Instructions: USE IN BOTH EYES dorzolamide-timolol 22.3-6.8 mg/mL drops 1 drp OPHTHALMIC (EYE) Q12H Label Comments: PLACE ONE DROP IN BOTH EYES TWICE A DAY Rx Instructions: PLACE ONE DROP IN BOTH EYES ondansetron HCl 4 mg tablet 4 mg PO Q8H PRN Label Comments: TAKE 1 TABLET (4 MG) BY MOUTH EVERY 8 HOURS IF NEEDED FOR NAUSEA/VOMITING. omeprazole 20 mg capsule,delayed release(DR/EC) 20 mg PO DAILY@1600 Label Comments: TAKE ONE CAPSULE BY MOUTH EVERY DAY BEFORE A MEAL Gvoke PFS 1-Pack Syringe 1 mg/0.2 mL syringe 1 mg SUBCUT DAILY PRN calcium carbonate [Calcium 600] 600 mg calcium (1,500 mg) tablet 600 mg PO DAILY cyanocobalamin (vitamin B-12) 1,000 mcg capsule 1,000 mcg PO DAILY loperamide [Imodium A-D] 2 mg capsule 2 mg PO QID PRN sennosides [senna] 8.6 mg tablet 8.6 mg PO HS multivitamin Tablet 1 tab PO DAILY@12 oxycodone-acetaminophen [Percocet] 5-325 mg tablet 1 tab PO Q6H PRN insulin glargine [Lantus Solostar U-100 Insulin] 100 unit/mL (3 mL) insulin pen 10 unit subcut BID Qty: 15 3RF insulin lispro 100 unit/mL insulin pen 1 sliding scale dose subcut USEASDIRECTD Qty: 15 2RF Follow Up/Referrals: Macario Pollard MD [Primary Care Provider] - Stand Alone Forms: [facility]
--- NOTE | 2022-09-07 15:09 | CRLHL7_ITS ---
For Patients: As a result of the Cures Act, medical imaging exams and procedure reports are released immediately into your electronic medical record. You may view this report before your referring provider. If you have questions, please contact your health care provider. INDICATION: Syncope TECHNIQUE: Chest radiograph 1 view COMPARISON: 09/01/2022, 10/11/2020 FINDINGS: The sensitivity and specificity of the exam are moderately limited by the patient`s body habitus. Mediastinum: The mediastinum is normal in appearance. The heart silhouette is normal in size and morphology. Embolization coils are seen near the AP window. Lung: Small lung volumes are present with mild pulmonary vascular congestion and bibasilar atelectasis. There is an ill-defined density measuring 1.8 cm in the right suprahilar region. No sign of pleural effusion seen. No pneumothorax is identified. Bone and Soft tissue: Unremarkable for age. IMPRESSIONS: 1. Small lung volumes are present with mild pulmonary vascular congestion and bibasilar atelectasis. 2. There is an ill-defined density measuring 1.8 cm in the right suprahilar region. Further evaluation with chest CT is recommended. Dictated by Jackson Carter MD @ 09/07/2022 5:48:26 PM Dictated by: Jackson Carter MD @ 09/07/2022 17:48:30 (Electronically Signed)
--- NOTE | 2022-09-07 15:10 | CRLHL7_ITS ---
For Patients: As a result of the Century Cures Act, medical imaging exams and procedure reports are released immediately into your electronic medical record. You may view this report before your referring provider. If you have questions, please contact your health care provider. Indication: Syncope, recent fall Technique: Volumetric multidetector CT images of the head were obtained without the administration of low osmolar intravenous contrast. Comparison: CT head September 01, 2022 Findings: There is no intra-axial or extra-axial fluid collection. There is no mass effect or midline shift. There is age-related cortical atrophy with mild sulcal widening and ex vacuo dilatation of the lateral ventricles. There are chronic small vessel disease changes in the subcortical and periventricular white matter without lost fagan-white differentiation. The orbits and their contents are grossly within normal limits. There are circumscribed lucencies within the bony calvarium consistent with history of multiple myeloma. Otherwise, the bony calvarium is intact. The paranasal sinuses are clear. The mastoid air cells are well aerated. Impression: 1. Age-related changes of the brain without acute intracranial abnormality. A report receipt was sent to Nova Johnson at 3:53 p.m. September 07, 2022 Please note that all CT scans at this facility use dose modulation, iterative reconstruction, and/or weight-based dosing when appropriate to reduce radiation dose to as low as reasonably achievable. Dictated by Narciso Taylor MD @ 09/07/2022 3:57:03 PM (Electronically Signed)
[2022-09-07 16:16] LABS: HCO3 VBG 34 mmol/L (21-28); PO2 VBG 25.2 mmHG (25-47)
[2022-09-07 16:18] LABS: Basophils Absolute Auto 0.03 K/uL (0.00-0.30); Basophils Percent Auto 0.4 % (0.0-3.0); Eosinophils Absolute Auto 0.17 K/uL (0.00-0.50); Hematocrit 45.7 % (37.0-53.0); Hemoglobin* 14.4 gm/dL (13.5-17.5); Immature Granulocytes Abs Auto 0.04 K/uL (0.00-0.30); Immature Granulocytes Pct Auto 0.5 %; Lymphocytes Absolute Auto 1.75 K/uL (0.90-2.90); Mean Corpuscular HGB Conc 32 gm/dL (32-36); Mean Corpuscular Hemoglobin 31 pg (26-34); Mean Corpuscular Volume 98 fL (80-100); Monocytes Percent Auto 9.9 % (0.0-11.0); Neutrophils Absolute Auto 5.51 K/uL (1.7-7.0); Neutrophils Percent Auto 66.2 % (42.0-72.0); Platelet Count* 256 K/uL (140-440); RDW Coefficient of Variation % 13.1 % (11.5-15.5); Red Blood Count 4.68 m/uL (4.30-5.90); White Blood Count* 8.32 K/uL (4.50-11.00)
[2022-09-07 16:20] LABS: Lactate* 1.1 mmol/L (0.5-1.9)
[2022-09-07 16:25] LABS: Slide Review Reflex No
[2022-09-07 16:29] LABS: PCO2 VBG 66 mmHG (40-50)
--- NOTE | 2022-09-07 16:33 | ED.NURSE ---
02 was turned off. is not on 02 at home. sats 96%.
[2022-09-07 16:37] LABS: PCR FLU A Negative PCR FLU A (Negative); PCR FLU B Negative PCR FLU B (Negative); PCR RSV Negative PCR RSV (Negative)
[2022-09-07 16:40] LABS: SARS PCR* Negative SARS-CoV-2 (Negative)
[2022-09-07 16:40] LABS: Albumin* 3.6 g/dL (3.3-5.0); Chloride* 103 mmol/L (96-114)
[2022-09-07 16:41] LABS: Potassium* 4.2 mmol/L (3.6-5.1); Sodium* 139 mmol/L (135-149)
[2022-09-07 16:43] LABS: Alkaline Phosphatase* 92 U/L (40-150); Aspartate Amino Transferase* 19 U/L (12-35); Bilirubin Total* 0.7 mg/dL (0.1-1.5); Carbon Dioxide* 34 mmol/L (20-32); Creatinine* 1.5 mg/dL (0.5-1.5); Estimated Glomerular Filt Rate 46 ml/min; Total Protein* 6.2 g/dL (6.0-8.3)
[2022-09-07 16:44] LABS: Alanine Aminotransferase* 19 U/L (4-50); Blood Urea Nitrogen* 29 mg/dL (7-30); Calcium* 8.8 mg/dL (8.4-10.6); Glucose* 69 mg/dL (60-115)
[2022-09-07 17:13] LABS: Troponin I* < 0.01 ng/mL (0.01-0.04)
[2022-09-07 17:14] LABS: NT Pro B Type NatriureticPept* 371 pg/mL
[2022-09-07 17:30] VITALS: BP 189/81; PULSE 53; RESP 16; O2SAT 88
[2022-09-07 17:35] LABS: D Dimer Quantitative* < 0.27 ug/ml (0.00-0.50)
[2022-09-07 17:57] VITALS: O2SAT 88
== END 2022-09-07 18:21 | disposition home or self-care (01) ==
PROVIDERS: Emergency Provider Family Medicine; PCP Surgery
DX: R55 Syncope and collapse (principal)
CPT/HCPCS: 36415; 70450; 71045; 80053; 82803; 83605; 83880; 84484; 85025; 85379; 87502; 87634; 87635; 93005; 94761; 99284; 99285

== ENCOUNTER 2022-10-15 22:22 | Outpatient (CLI) | payer MEDICARE, BC, SELFPAY | END 2022-10-15 22:23 | disposition home or self-care (01) | LOC: AMB 10-18 09:52 | PROVIDERS: PCP Surgery; Visit Provider Internal Medicine | DX: S49.82XA Other specified injuries of left shoulder and upper arm, initial encounter (principal); W01.0XXA Fall on same level from slipping, tripping and stumbling without subsequent striking against object, initial encounter; Y92.002 Bathroom of unspecified non-institutional (private) residence as the place of occurrence of the external cause | CPT/HCPCS: A0425; A0427 ==